=== PATIENT | male | born 1935 | race Caucasian/White ===

== ENCOUNTER → 2016-10-19 | Outpatient (CLI) | payer MEDICARE, BC | END | disposition home or self-care (01) | LOC: GMAB 10:48 | PROVIDERS: ATTEND Family Medicine | DX: Z12.5 Encounter for screening for malignant neoplasm of prostate (principal); I10 Essential (primary) hypertension | CPT/HCPCS: 84443; G0103 ==

== ENCOUNTER 2017-04-22 21:51 | Emergency (ER) | payer MEDICARE, BC ==
[2017-04-22] MEDS ORDERED: POVIDONE IODINE 10 % 15 ML UD TOP ONE (22:19)
[2017-04-22] MEDS ORDERED: LIDOCAINE 1% 10 ML VIAL INJ ONE (22:19)
--- NOTE | 2017-04-22 22:42 | ED.PDOC ---
History of Present Illness - General Time Seen by Provider: 04/22/17 21:56 Source: patient Exam Limitations: no limitations - History of Present Illness Initial Comments: The patient is an 82-year-old male presenting to the emergency room after havingtripped and fallen going up the steps. He hit his left eyebrow on the concrete. He has sustained approximately a 1.75 inch laceration through the eyebrow. No loss of consciousness and no dizziness. No undue headache. No altered mental status. Estimated blood loss prior to arrival approximately 5 cc. He is having no vision changes. No neurological changes. Timing/Duration: momentarily Severity: mild Improving Factors: nothing Worsening Factors: nothing Allergies/Adverse Reactions: Allergies NO KNOWN ALLERGY Allergy (Unverified 04/28/13 21:54) Home Medications: Ambulatory Orders Albuterol Inhaler [Ventolin Hfa Inhaler] 1 puff INH Q4-6H PRN #0 inh 04/29/13 Feridat-Ofwlkxdnvryh-Ugqnxcmf [Bc Fast Pain Relief 650-195-33.3 mg] 2 pow PO DAILY 04/29/13 Metoprolol Tartrate 50 mg PO DAILY 04/29/13 Review of Systems - Review of Systems Constitutional: States: no symptoms reported EENTM: States: see HPI Respiratory: States: no symptoms reported Cardiology: States: no symptoms reported Gastrointestinal/Abdominal: States: no symptoms reported Genitourinary: States: no symptoms reported Musculoskeletal: States: no symptoms reported Skin: States: see HPI Neurological: States: no symptoms reported Endocrine: States: no symptoms reported All other Systems: No Change from Baseline Past Medical History (General) - Patient Medical History Hx Seizures: No Hx Stroke: No Hx Asthma: No Hx of COPD: No Hx Cardiac Disorders: No - HTN, occasionaly edema Hx Congestive Heart Failure: No Hx Pacemaker: No Hx Hypertension: Yes Hx Diabetes: No Hx MRSA: No - Social History Hx Alcohol Use: No Hx Substance Use: No Hx Physical Abuse: No Hx Emotional Abuse: No Physical Exam - Physical Exam General Appearance: Alert, Comfortable, No apparent distress Eye Exam: bilateral normal Ears, Nose, Throat: normal ENT inspection, normal pharynx, other - hronic hearing loss bilaterally Neck: non-tender, full range of motion, supple Respiratory: chest non-tender, lungs clear, normal breath sounds, no respiratory distress, no accessory muscle use Cardiovascular/Chest: normal peripheral pulses, no edema, other - egular rate Peripheral Pulses: radial,right: 2+, radial,left: 2+, dorsalis pedis,right: 2+, dorsalis pedis,left: 2+ Gastrointestinal/Abdominal: soft Rectal Exam: deferred Back Exam: normal inspection, no CVA tenderness, no vertebral tenderness Extremity: normal range of motion, normal inspection, no pedal edema, normal capillary refill 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 Risk and benefits of repair were explained and the patient agrees to proceed. Wound is cleaned with sterile saline and gauze. 3 cc of 1% lidocaine without epinephrine was used for local anesthetic. 4 simple sutures of 4-0 Ethilon were used for reapproximation. Good hemostasis was obtained. No clinical evidence of underlying fracture. No clinical evidence of concussion. No neurological changes. His should wake him several times during the night to make sure he wakes up appropriately. Tylenol can be used for discomfort. The patient deferred an antibiotic dose for prophylaxis. Sutures need to be removed in 7-10 days. ER warnings were given. Topical antibiotic ointment can be applied once daily. Departure - Departure Clinical Impression: Laceration Disposition: Discharge to Home or Self Care Condition: Fair Instructions: DI for Laceration Repair of the Scalp Diet: regular diet Activity: increase activity as tolerated Referrals: Alonso Torres MD [Primary Care Provider] - 1-2 Weeks Home Medications: Ambulatory Orders Albuterol Inhaler [Ventolin Hfa Inhaler] 1 puff INH Q4-6H PRN #0 inh 04/29/13 Cxkxena-Xdmqrzmtwpps-Ezxprsar [Bc Fast Pain Relief 650-195-33.3 mg] 2 pow PO DAILY 04/29/13 Metoprolol Tartrate 50 mg PO DAILY 04/29/13 Additional Instructions: the patient is an 82-year-old male presenting to the emergency room with a 1.75 inch laceration through the left eyebrow after a fall. 4 simple sutures of 4-0 Ethilon were used for reapproximation. Good hemostasis was obtained. No clinical evidence of underlying fracture. No clinical evidence of concussion. No neurological changes. His should wake him several times during the night to make sure he wakes up appropriately. Tylenol can be used for discomfort. The patient deferred an antibiotic dose for prophylaxis. Sutures need to be removed in 7-10 days. ER warnings were given. Topical antibiotic ointment can be applied once daily.
[2017-04-22] MEDS ORDERED: NEOMYCIN-BACITRACIN-POLYMYXIN 0.9 GM UD TOP ONE (22:52)
[2017-04-22 23:07] VITALS: TEMP 96.2
[2017-04-22 23:12] VITALS: BP 123/82; O2SAT 98
== END 2017-04-22 23:12 | disposition home or self-care (01) ==
LOC: ER 21:51
DX: S01.112A Laceration without foreign body of left eyelid and periocular area, initial encounter (principal); I10 Essential (primary) hypertension; Z79.82 Long term (current) use of aspirin; W10.9XXA Fall (on) (from) unspecified stairs and steps, initial encounter; Y92.9 Unspecified place or not applicable

== ENCOUNTER 2017-04-28 11:31 | Emergency (ER) | payer MEDICARE ==
--- NOTE | 2017-04-28 11:48 | CT ---
PROCEDURE: Head HISTORY: altered mental status, paralysis left side Indication: Same as above Comparison: 09/25/2014 Technique: CT of the head was done without intravenous contrast was done in the orthogonal planes. This exam was performed according to our departmental dose-optimization program, which includes automated exposure control, adjustment of the mA and/or KV according to the patient's size and/or use of iterative reconstruction technique. FINDINGS: There is no intracranial hemorrhage, midline shift mass effect or acute focal infarct, given the limitation of motion artifact on the current study. 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 There is periventricular and deep white matter low attenuation, most likely related to small vessel white matter ischemic disease. Intracranial vascular calcifications are seen. If clinical concern exists regarding an acute ischemic/vascular pathology being responsible for patient's symptomatology, an MRI of the brain is more sensitive than the current study, in ruling out such a possibility. There is good lucas/white matter differentiation. The ventricular system is normal. The mastoid air cells are unremarkable . The paranasal sinuses are unremarkable . There is no visualization of acute fractures involving the calvarium or the skull base, once again limited by motion artifact. IMPRESSION: There is no acute intracranial abnormality, given the limitation of motion artifact on the current study. Age related and chronic involutional changes are seen. Electronically signed by: Guanaco Aragon MD 04/28/2017 11:47 AM CDT Workstation: [id number]
[2017-04-28 11:58] VITALS: TEMP 96.5
[2017-04-28] MEDS ORDERED: ASPIRIN TABLET 325 MG TAB PO ONE (12:23)
--- NOTE | 2017-04-28 12:23 | RAD ---
PROCEDURE: XR CHEST 1 VIEW HISTORY: ams COMPARISON: 04/28/2013 TECHNIQUE: Single projection of the chest was done. FINDINGS: The lung toro are well inflated . There are underlying changes of COPD There are no discrete airspace infiltrates, pneumothoraces or pleural effusions. The pulmonary vascularity is normal. The cardiomediastinal silhouette is unremarkable for patient's age and sex. A benign prominent left epicardial fat pad is again noted IMPRESSION: There is no acute pleural-parenchymal process seen in the imaged lung toro. Underlying changes of COPD Electronically signed by: Guanaco Aragon MD 04/28/2017 12:22 PM CDT Workstation: [id number]
--- NOTE | 2017-04-28 12:28 | ED.PDOC ---
History of Present Illness - General Chief Complaint: Neuro Symptoms/Deficits Stated Complaint: altered mental status Time Seen by Provider: 04/28/17 11:43 Source: patient, family Exam Limitations: clinical condition - History of Present Illness Initial Comments: the patient is an 82-year-old male presenting to the emergency room secondary to acute onset neurological deficits. At approximately 11 AM this morning the patient's found him unresponsive lying on his bed. She reports she thought he was . She had seen in less than 15 minutes prior and had said a few words to him and he had spoken back to her. He had apparently been getting dressed when the event happened. She immediately called EMS. by the time EMS arrived the patient was awake but he was confused and unable to speak. The patient was unable to move his left upper and left lower extremity. by the time the patient had arrived here and gone through the CT scanner his deficits were resolving. There was some minimal residual weakness of the left upper extremity. Over the next 30 minutes that resolved. The patient is not having any difficulty speaking. No vision deficits. Strength has returned to upper and lower extremities. He does not appear to be having any difficulty mentating. He reports that he feels fine and wants to go home. His is not okay with that part. The patient has previously been healthy and only takes metoprolol on a daily basis. He does not take any blood thinners. He did have a fall 3 or 4 days ago where he tripped and fell and sustained a laceration over his left eyebrow. He did not lose consciousness at that time. He had been having no difficulties over the next few days. 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 Timing/Duration: 1/2 hour Severity: severe Associated Symptoms: denies symptoms Allergies/Adverse Reactions: Allergies Levofloxacin [From Levaquin] Allergy (Verified 04/22/17 23:07) Morphine Allergy (Verified 04/22/17 23:07) Home Medications: Ambulatory Orders Metoprolol Tartrate 50 mg PO DAILY 04/29/13 Advil 04/22/17 Albuterol Inhaler [Ventolin Hfa Inhaler] 1 puff INH Q4-6H PRN 04/22/17 Review of Systems - Review of Systems Unable to Obtain Due To: condition - once the patient came around, he reports he has been having a mild headache since his fall which is not surprising. He denies any neck pain. Past Medical History (General) - Patient Medical History Hx Seizures: No Hx Stroke: No Hx Asthma: No Hx of COPD: Yes Hx Cardiac Disorders: Yes Hx Congestive Heart Failure: No Hx Pacemaker: No Hx Hypertension: Yes Hx Diabetes: No Hx MRSA: No Surgical History: cholecystectomy - Vaccination History Hx Tetanus, Diphtheria Vaccination: No Hx Influenza Vaccination: No Hx Pneumococcal Vaccination: No - Social History Hx Tobacco Use: Yes Hx Alcohol Use: No Hx Substance Use: No Hx Physical Abuse: No Hx Emotional Abuse: No Family Medical History - Family History Father Family History: Unknown Physical Exam - Physical Exam General Appearance: Other - nitially confused but later oriented. Eye Exam: bilateral normal Ears, Nose, Throat: normal ENT inspection, normal pharynx, other - mild chronic bilateral hearing loss. Neck: non-tender, full range of motion, supple Respiratory: chest non-tender, lungs clear, normal breath sounds, no respiratory distress, no accessory muscle use Cardiovascular/Chest: normal peripheral pulses, regular rate, rhythm, no edema Peripheral Pulses: radial,right: 2+, radial,left: 2+, dorsalis pedis,right: 2+, dorsalis pedis,left: 2+ Gastrointestinal/Abdominal: non tender, soft Rectal Exam: deferred Back Exam: normal inspection - with the exception of the sacrallesion Extremity: normal range of motion - passively, non-tender, no pedal edema, no calf tenderness, normal capillary refill Neurologic: alert - but initially confused. Difficulty speaking initially. These have cleared up. Weakness to the left upper and left lower extremity have cleared up. Skin Exam: normal color - with the exception of the bruising from his previous falls in the surgical procedure to the right eyebrowperformed a few weeks ago Comments: Vital Signs - 24 hr 04/28/17 11:52 Temperature 96.5 F L Pulse Rate [ 94 H Right Brachial] Respiratory 20 Rate Blood Pressure 206/102 [Right Arm] O2 Sat by Pulse 92 L Oximetry Progress - Progress Progress: 04/28/17 12:31 the patient is an 82-year-old male presenting due to a significant TIA. Deficits of confusion, expressive aphasia, left upper and lower extremity weakness appears to have resolved essentially completely at this time. Lytics are not being given. Due to this the patient is receiving aspirin dose. No evidence of significant acute pathology on the head CT. The patient is being transferred for neurological evaluation to [facility] in [place]. We are tolerating some mild hypertension currently. Continue monitoring neurologically. Lab work, EKG, and chest x-ray are otherwise reassuring at this time. - Results/Orders Results/Orders: Laboratory Tests 04/28/17 04/28/17 04/28/17 11:54 11:54 11:54 WBC 4.6 L RBC 4.51 L Hgb 15.2 Hct 44.8 MCV 99.4 H MCH 33.7 H MCHC 33.9 RDW 12.1 Plt Count 190 MPV 6.9 L Absolute Neuts (auto) 2.90 Absolute Lymphs (auto) 1.10 Absolute Monos (auto) 0.40 Absolute Eos (auto) 0.20 Absolute Basos (auto) 0.00 Neutrophils % 62.6 Lymphocytes % 23.7 Monocytes % 9.0 Eosinophils % 3.8 Basophils % 0.9 PT 10.2 INR 0.900 PTT (SP) 22.4 L Sodium 133 L Potassium 4.1 Chloride 94 L Carbon Dioxide 23 Anion Gap 20.1 H BUN 9 Creatinine 0.92 BUN/Creatinine Ratio 9.8 L Random Glucose 141 H Serum Osmolality 267.4 L Calcium 9.4 Total Bilirubin 1.5 H AST 42 ALT 16 Alkaline Phosphatase 53 Creatine Kinase 41 Troponin I < 0.02 Serum Total Protein 7.6 Albumin 4.0 Globulin 3.6 H Albumin/Globulin Ratio 1.[address] shows no evidence of any intracranial hemorrhage. No evidence of acute ischemia. There are chronic changes. chest x-ray appears benign. EKG shows normal sinus rhythm. No acute ST segment changes concerning for ischemia. Heart rate is 89 bpm. Borderline QT interval. critical care time spent on this patient including developing a plan of care and transferis approximately 40 minutes. - EKG/XRAY/CT CT Ordered: Yes CT Interpretation Call Back: Yes Departure - Departure Clinical Impression: Transient ischaemic attack (TIA), and cerebral infarction without residual deficits Disposition: Transfer to Hospital Referrals: Alonso Torres MD [Primary Care Provider] - 1-2 Weeks Home Medications: Ambulatory Orders Metoprolol Tartrate 50 mg PO DAILY 04/29/13 Advil 04/22/17 Albuterol Inhaler [Ventolin Hfa Inhaler] 1 puff INH Q4-6H PRN 04/22/17 Transfer to Outside Facility - Transfer Information Accepting Provider:: dr luz marina Byrd Accepting Facility: [facility] Reason for Transfer: required specialist not available
[2017-04-28 12:50] VITALS: O2SAT 95
[2017-04-28 13:02] VITALS: BP 181/96
== END 2017-04-28 13:02 | disposition short-term general hospital (02) ==
LOC: ER 11:31
DX: G45.9 Transient cerebral ischemic attack, unspecified (principal); J44.9 Chronic obstructive pulmonary disease, unspecified; I10 Essential (primary) hypertension; Z87.891 Personal history of nicotine dependence; Z88.3 Allergy status to other anti-infective agents; Z88.6 Allergy status to analgesic agent

== ENCOUNTER → 2017-05-26 | Outpatient (CLI) | payer MEDICARE | END | disposition home or self-care (01) | LOC: BFHH 12:17 | PROVIDERS: ATTEND Family Medicine | DX: R55 Syncope and collapse (principal); I10 Essential (primary) hypertension; R00.2 Palpitations ==

== ENCOUNTER → 2017-06-18 | Outpatient (CLI) | payer MEDICARE | END | disposition home or self-care (01) | LOC: BFHH 14:12 | PROVIDERS: ATTEND Family Medicine | DX: I10 Essential (primary) hypertension (principal) ==

== ENCOUNTER → 2017-06-25 | Outpatient (CLI) | payer MEDICARE | END | disposition home or self-care (01) | LOC: GMAB 17:54 | PROVIDERS: ATTEND Family Medicine | DX: D51.9 Vitamin B12 deficiency anemia, unspecified (principal); I10 Essential (primary) hypertension; G60.3 Idiopathic progressive neuropathy ==

== ENCOUNTER → 2017-12-10 | Outpatient (CLI) | payer MEDICARE ==
--- NOTE | 2017-12-11 09:44 | US ---
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 TECHNIQUE: Carotid Doppler ultrasound FINDINGS: Right Submitted images show extensive partly calcified plaque of the upper right cervical common carotid artery with extensive plaque at the right carotid bifurcation involving origins of right internal and external carotid arteries. Axial images show significant narrowing of the origins of the right internal and external carotid arteries. Axial images show 18% area narrowing of the upper right CCA with 36% area narrowing of the right carotid bulb and 72% area narrowing of the proximal right ICA. The following flow velocities were obtained: Common carotid artery peak systolic flow velocity measures 66.4 cm/s. Internal carotid artery peak systolic flow velocity measures 97 cm/s. The right ICA to CCA peak systolic flow velocity ratio of 1.5 is within normal limits. External carotid artery peak systolic flow velocity measures 66.4 cm/s. Flow in the right vertebral artery is antegrade. Left Submitted images show extensive calcified plaque in the upper half of the left cervical common carotid artery. Extensive plaque is seen at the left carotid bifurcation involving origins of left internal and external carotid arteries. Axial images show 40% area narrowing of the upper left CCA with 25% area narrowing of the left carotid bulb and approximately 44% area narrowing of the proximal left ICA. The following flow velocities were obtained: Common carotid artery peak systolic flow velocity measures 77 cm/s. Internal carotid artery peak systolic flow velocity measures 74 cm/s. The left internal carotid to common carotid peak systolic flow velocity ratio of 1.0 is normal. External carotid artery peak systolic flow velocity measures 108.1 cm/s. Flow in the left vertebral artery is antegrade. IMPRESSION: Calcified plaque in the upper left CCA and at the left carotid bifurcation. No hemodynamically significant stenosis of the left internal carotid artery or left common carotid artery. Antegrade flow in the left vertebral artery. Extensive arteriosclerotic plaque in the upper right CCA and at the right carotid bifurcation. Axial images show 72% area narrowing of the proximal right ICA. Antegrade flow in the right vertebral artery. No significantly elevated flow velocities on either side. Electronically signed by: Tae Kidd MD 12/11/2017 9:42 AM CDT
== END ==
LOC: US 13:23
PROVIDERS: ATTEND Family Medicine
DX: I65.23 Occlusion and stenosis of bilateral carotid arteries (principal)

== ENCOUNTER → 2017-12-18 | Outpatient (CLI) | payer MEDICARE ==
--- NOTE | 2017-12-19 09:20 | CT ---
EXAM DESCRIPTION: CTA Neck CLINICAL HISTORY: 82 years, Male, OCCLUSION AND STENOSIS OF BILATERAL CAROTID ARTERIES COMPARISON: Carotid Doppler sonogram December 10, 2017 TECHNIQUE: Rapid bolus administration of 100 mL of Isovue 370 IV contrast was performed with thin-section axial scanning of the cervical vessels performed in a dynamic fashion. Reconstructed multiplanar and three dimensional MIP images created on a separate dedicated workstation are reviewed along with the source axial images and stored in the patient's medical record. FINDINGS: Axial source data images show positive enhancement of the aortic arch, brachiocephalic artery, origins of left common carotid and left subclavian arteries. There is positive enhancement of the right common carotid artery and right subclavian artery with positive enhancement of the vertebral arteries which are codominant. There is positive enhancement of the carotid bifurcations bilaterally with positive enhancement of the internal carotid arteries from the bifurcation to the skull base. Positive enhancement of the vessels of the [place]. Right At the right carotid bifurcation, approximately 50% luminal diameter narrowing of the right carotid bulb and proximal right ICA is seen. The degree of narrowing is less than predicted by the Doppler sonographic findings. There is significant tortuosity of the right ICA. The right ECA is significantly narrowed at its origin approximately 70%. Above this focal stenosis the right ECA is widely patent with normal enhancement of peripheral branches. Left At the left carotid bifurcation, no significant narrowing of the left internal carotid artery is seen. Mild 30% narrowing of the left ECA origin is seen with calcified plaque at the left carotid bulb but no significant bulbar narrowing. Calcified plaque is seen at the carotid siphons bilaterally with no significant stenosis. Positive enhancement of bilateral middle cerebral arteries and anterior cerebral arteries as well as anterior communicating artery. There is positive enhancement of the basilar artery, superior cerebellar arteries and bilateral posterior cerebral arteries. Positive enhancement of peripheral branch vessels partly included on the exam. Lower brain appears atrophic consistent with age-related cerebral volume loss. Severe emphysema is seen in the lung apices. Advanced degenerative changes are noted in the cervical spine with moderate spinal canal narrowing. 3-D Shaded surface display 3-D images show calcified plaque of the upper common carotid arteries and carotid bifurcations bilaterally. Three-D shaded surface display images reveal stenotic origin of the external right carotid artery which appears high-grade approximately 70-80%. Milder narrowing of the origin of the right internal carotid artery at and above the bulb approximately 40-50%. On the left, mild origin narrowing of the left external carotid artery is seen. Calcified plaque obscures the left carotid bulb and proximal left ICA but no significant stenosis is evident. MIP images are also rotated mediolaterally. Coronal and sagittal reformatted images confirm the findings. IMPRESSION: 70-80% stenosis of the origin of the right external carotid artery. 50% narrowing of the origin of the right ICA. 30% narrowing of the origin of the left external carotid artery with widely patent left carotid bulb and proximal left internal carotid artery. Normal enhancement of the vessels of the [place]. This exam was performed according to our departmental dose-optimization program, which includes automated exposure control, adjustment of the mA and/or kV according to patient size and/or use of iterative reconstruction technique. Total DLP equals 801.55 mGycm. Electronically signed by: Tae Kidd MD 12/19/2017 9:19 AM CDT
== END | disposition home or self-care (01) ==
LOC: CT 15:00
PROVIDERS: ATTEND Family Medicine
DX: I65.23 Occlusion and stenosis of bilateral carotid arteries (principal)

== ENCOUNTER → 2018-04-04 | Outpatient (CLI) | payer MEDICARE | LOC: GMAJS 14:53 | PROVIDERS: ATTEND Physician Assistant | DX: D51.9 Vitamin B12 deficiency anemia, unspecified (principal); I10 Essential (primary) hypertension ==

== ENCOUNTER → 2018-10-21 | Outpatient (CLI) | payer MEDICARE | LOC: GMAE 14:17 | PROVIDERS: ATTEND Family Medicine | DX: E53.8 Deficiency of other specified B group vitamins (principal); M62.81 Muscle weakness (generalized) ==

== ENCOUNTER → 2018-12-19 | Outpatient (CLI) | payer MEDICARE | LOC: GMAE 15:17 | PROVIDERS: ATTEND Family Medicine | DX: I10 Essential (primary) hypertension (principal) ==

== ENCOUNTER 2019-01-16 16:03 | Observation (INO) | payer MEDICARE ==
[2019-01-16] MEDS ORDERED: IPRATROPIUM/ALBUTEROL 3 ML VIAL NEB ONE ×2 (16:10→17:12)
--- NOTE | 2019-01-16 16:14 | ED.PDOC ---
History of Present Illness - General Chief Complaint: Respiratory Problem Stated Complaint: SOB Time Seen by Provider: 01/16/19 16:13 Source: patient, family Exam Limitations: no limitations - History of Present Illness Initial Comments: Shantanu Jenkins 83 y/o male brought by family with worsening SOB nad got cyanotic at home this am and also chest feels tight no pains;no diaphoresis;Had been having cough productive for the last 4 days was prescribed antibiotics - Augmentin and OTC-cough medications.Had smoked for the last 60 years and presently on e-cig. Timing/Duration: getting worse, other - see hpi Severity: moderate Improving Factors: nothing Worsening Factors: nothing Associated Symptoms: cough Allergies/Adverse Reactions: Allergies Levofloxacin [From Levaquin] Allergy (Verified 04/22/17 23:07) Morphine Allergy (Verified 04/22/17 23:07) Home Medications: Ambulatory Orders Metoprolol Tartrate 50 mg PO BID 04/29/13 Albuterol Inhaler [Ventolin Hfa Inhaler] 1 puff INH Q4-6H PRN 04/22/17 ALPRAZolam [Xanax] 0.25 mg PO TID PRN 01/16/19 Amoxicillin & Pot Clavulanate [Augmentin Tab] 0.5 tablet PO BID 01/16/19 HYDROcodone 10MG/APAP 325MG [Jesse 10/325] 1 ea PO TID PRN 01/16/19 Loratadine [Claritin] 10 mg PO DAILY 01/16/19 Valsartan 320 mg PO DAILY 01/16/19 Review of Systems - Review of Systems Constitutional: States: no symptoms reported EENTM: States: no symptoms reported Respiratory: States: see HPI Cardiology: States: no symptoms reported Gastrointestinal/Abdominal: States: no symptoms reported Genitourinary: States: no symptoms reported Musculoskeletal: States: no symptoms reported Skin: States: no symptoms reported Neurological: States: no symptoms reported Endocrine: States: no symptoms reported All other Systems: Reviewed and Negative, No Change from Baseline Past Medical History (General) - Patient Medical History Hx Seizures: No Hx Stroke: Yes - 2017 Hx Asthma: No Hx of COPD: Yes Hx Cardiac Disorders: Yes Hx Congestive Heart Failure: No Hx Pacemaker: No Hx Hypertension: Yes Hx Diabetes: No Hx MRSA: No Surgical History: cholecystectomy, other - carotid EA right - Vaccination History Hx Tetanus, Diphtheria Vaccination: No Hx Influenza Vaccination: No Hx Pneumococcal Vaccination: No - Social History Hx Tobacco Use: Yes Hx Alcohol Use: No Hx Substance Use: No Hx Physical Abuse: No Hx Emotional Abuse: No - Activities of Daily Living Patient Lives Alone: No Grooming Ability: Independent Eating (Feeding) Ability: Independent Toileting Ability: Independent Family Medical History - Family History Father Family History: Unknown Hx Family Cancer: Yes - dad Physical Exam - Physical Exam General Appearance: Alert, Anxious, No apparent distress Eye Exam: bilateral normal, bilateral other - eye rednesslower lid Ears, Nose, Throat: hearing grossly normal, normal ENT inspection, normal pharynx Neck: full range of motion, supple, normal inspection Respiratory: chest non-tender, no respiratory distress, no accessory muscle use, decreased breath sounds Cardiovascular/Chest: normal peripheral pulses, regular rate, rhythm, no murmur Peripheral Pulses: radial,right: 2+, radial,left: 2+ Gastrointestinal/Abdominal: normal bowel sounds, non tender, soft, no organomegaly Neurologic: alert, oriented x 3 Skin Exam: normal color, warm/dry Progress - Progress Progress: 01/16/19 17:21 Vital Signs - 8 hr 01/16/19 01/16/19 01/16/19 16:03 16:08 16:23 Temperature 97.3 F L Pulse Rate Pulse Rate [ 80 73 70 left brachial] Respiratory 36 H 36 H 26 H Rate Blood Pressure 247/112 217/100 198/97 [left brachial] O2 Sat by Pulse 91 L 95 96 Oximetry 01/16/19 01/16/19 01/16/19 16:31 16:33 16:57 Temperature Pulse Rate 72 Pulse Rate [ 71 left brachial] Respiratory 18 24 Rate Blood Pressure 179/88 [left brachial] O2 Sat by Pulse 93 L 96 93 L Oximetry 01/16/19 17:00 Temperature Pulse Rate Pulse Rate [ 72 left brachial] Respiratory 25 H Rate Blood Pressure 170/74 [left brachial] O2 Sat by Pulse 93 L Oximetry - Results/Orders Results/Orders: 01/16/19 16:06 IV Care:Saline Lock per Protoc QSHIFT Telemetry .ONCE EKG Stat Pulse Ox Stat 01/16/19 17:11 SVN/Updraft Therapy .ONCE SVN/Updraft Therapy .PRN SVN/Updraft Therapy .PRN 01/17/19 09:00 Updrafts Daily Laboratory Results - last 24 hr 01/16/19 01/16/19 01/16/19 16:25 16:25 17:25 WBC 3.5 L RBC 4.21 L Hgb 12.9 L Hct 38.3 L MCV 91.0 MCH 30.7 MCHC 33.7 RDW 13.6 Plt Count 157 MPV 7.5 Absolute Neuts (auto) 2.30 Absolute Lymphs (auto) 0.70 L Absolute Monos (auto) 0.40 Absolute Eos (auto) 0.10 Absolute Basos (auto) 0.00 Neutrophils % 66.2 Lymphocytes % 19.5 L Monocytes % 11.2 H Eosinophils % 2.6 Basophils % 0.5 PT 9.8 INR 0.98 PTT (SP) 28.3 pCO2 38 pO2 62 L HCO3 25.0 ABG pH 7.430 ABG O2 Saturation 94.3 L ABG Base Excess 1.3 ABG Deoxyhemoglobin 5.6 H Oxyhemoglobin % 92.6 L Carboxyhemoglobin % 0.5 Methemoglobin % Sat 1.3 Calc Total Hemoglobin 12.2 L Sodium 136 Potassium 3.4 L Chloride 101 Carbon Dioxide 26 Anion Gap 12.4 BUN 11 Creatinine 0.98 BUN/Creatinine Ratio 11.2 Random Glucose 114 H Serum Osmolality 272.2 L Calcium 9.0 Magnesium 1.6 L Total Bilirubin 1.4 H Direct Bilirubin 0.2 Indirect Bilirubin 1.2 H AST 23 ALT 11 Alkaline Phosphatase 79 Creatine Kinase 49 CK-MB (CK-2) 1.1 CK-MB (CK-2) % 2.24 Troponin I < 0.02 B-Natriuretic Peptide 237.0 H* Serum Total Protein 7.2 Albumin 3.7 Discuss test results with patient and recommended hospital OBS and agreed with plan. - EKG/XRAY/CT EKG: Sinus, nonspecific ST T wave Chg Comments: HR- 72 XRAY: chest - COPD changes Departure - Departure Clinical Impression: COPD exacerbation, Nicotine dependence with current use Time of Disposition: 18:38 Disposition: Admit Patient Condition: Fair Departure Forms: ED Discharge - Pt. Copy, Patient Portal Self Enrollment Referrals: ROGELIO GARCIA MD [Primary Care Provider] - 1-2 Weeks Home Medications: Ambulatory Orders Metoprolol Tartrate 50 mg PO BID 04/29/13 Albuterol Inhaler [Ventolin Hfa Inhaler] 1 puff INH Q4-6H PRN 04/22/17 ALPRAZolam [Xanax] 0.25 mg PO TID PRN 01/16/19 Amoxicillin & Pot Clavulanate [Augmentin Tab] 0.5 tablet PO BID 01/16/19 HYDROcodone 10MG/APAP 325MG [Jesse 10/325] 1 ea PO TID PRN 01/16/19 Loratadine [Claritin] 10 mg PO DAILY 01/16/19 Valsartan 320 mg PO DAILY 01/16/19 Decision To Admit - Decistion To Admit Decision to Admit Reason: Admit from ER Decision to Admit Date: 01/16/19 - D/W Brandon Carney-ANP/Hospitalist Decision to Admit Time: 18:35
--- NOTE | 2019-01-16 16:24 | RAD ---
EXAM DESCRIPTION: Chest,1 View CLINICAL HISTORY: 83 years Male wheezing COMPARISON: 04/28/2017 FINDINGS: Cardiac size based on contour appear unchanged. Lungs are hyperinflated compatible COPD. No acute consolidation, evidence of edema or pneumothorax. Small nodular focus is seen in the lateral aspect of the left lung base measuring 7 mm. This appears unchanged from the patient's previous exam. IMPRESSION: COPD without evidence of acute process Electronically signed by: Jessica Ugarte MD 01/16/2019 4:22 PM CDT
[2019-01-16] MEDS ORDERED: methylPREDNISolone SODIUM SUC 125 MG/2 ML VIAL IV ONE (16:41)
--- NOTE | 2019-01-16 19:24 | HP ---
SUPERVISING PHYSICIAN: Feng Dale M.D. CHIEF COMPLAINT: Shortness of breath. HISTORY OF PRESENT ILLNESS: This is an 83 year-old male patient who came into the E. R. for shortness of breath on Sunday. It started off basically with nasal congestion and fullness. He had some drainage and called his primary care provider, Dr. Penaloza, on Sunday but they were unable to get him in so he went to go see Shayan Holliday, [facility], [facility]. He was evaluated then. At that time he did have a cough and fever, but his lungs sounded okay. He was given antibiotics. He was given Augmentin and instructed to take some Claritin. The Augmentin started to cause diarrhea so they cut the pill in half and continued the medications. His shortness of breath persisted and his cough worsened. The cough turned productive and he has had yellowish green sputum production, therefore he came to the Emergency Room. In the E. R., he was evaluated and had a normal white count with no left shift. His chemistry showed a low potassium at 3.4, magnesium 1.6, bilirubin 1.4, BNP 237. He was referred for admission for chronic obstructive pulmonary disease exacerbation as his chest x-ray did not show any infiltrates. At time of examination, the patient is alert and oriented. PAST MEDICAL HISTORY: 1. Stroke with no residual deficits. 2. Hypertension. 3. Benign prostatic hypertrophy. 4. Anxiety. PAST SURGICAL HISTORY: 1. Cholecystectomy. 2. Carotid endarterectomy. CURRENT MEDICATIONS: 1. Ventolin HFA 1 puff every 4 to 5 hours p.r.n. for shortness of breath. 2. Alprazolam 0.25 mg p.o. t.i.d. p.r.n. for anxiety. 3. Aspirin 81 mg p.o. daily. 4. Hydrocodone 10 mg 1 tablet 3 times a day p.r.n. for pain. 5. Loratadine 10 mg p.o. daily. 6. Metoprolol 50 mg p.o. b.i.d. 7. Valsartan 320 mg p.o. daily. 8. Recently was put on Augmentin 875 p.o. b.i.d. for 10 days. ALLERGIES: AMLODIPINE, LEVOFLOXACIN AND MORPHINE. FAMILY HISTORY: Reviewed and is noncontributory. SOCIAL HISTORY: The patient as a history of smoking but quit smoking cigarettes several years ago and still utilizes an E-cigarette. No alcohol and no illicit drugs. He is and has children. REVIEW OF SYSTEMS: CONSTITUTIONAL: Positive for fever. No chills. No recent weight loss or weight gain. HEENT: No headache. No vision changes. He did have some ear fullness earlier in the week, some nasal congestion and a little bit of a sore throat as well. RESPIRATORY: Positive for cough. No hemoptysis. No pleuritic chest pain. Positive for shortness of breath. CARDIOVASCULAR: No chest pain, palpitations or peripheral edema. GASTROINTESTINAL: No nausea. No vomiting. No constipation. Did have some diarrhea after starting Augmentin. GENITOURINARY: He does have difficulty starting his stream due to BPH, but no frequency or dysuria. MUSCULOSKELETAL: No joint pain, joint swelling or muscle cramps. ENDOCRINE: No polydipsia, polyuria or polyphagia. No heat or cold intolerance. NEUROLOGIC: No paresthesias, seizures or syncope. PHYSICAL EXAMINATION: VITAL SIGNS: Blood pressure 160/83, heart rate 77, respiratory rate 25, temperature 97.3, oxygen saturation 96%. GENERAL: Mr. Jenkins is an 83 year-old male patient in no active distress currently. CHEST: Lungs were diminished but no active wheezing. CARDIOVASCULAR: The patient has a regular rate and rhythm. Normal S1 and S2. ABDOMEN: Soft. Positive bowel sounds. GENITOURINARY: Exam is deferred. EXTREMITIES: Lower extremities with no significant edema. NEUROLOGIC: The patient is alert and oriented. LABORATORY: Labs and films as discussed in the History of Present Illness. ASSESSMENT: 1. Chronic obstructive pulmonary disease exacerbation. 2. Hypertension. 3. Hypokalemia. 4. Hypomagnesemia. PLAN: Will treat the patient for COPD exacerbation with empiric antibiotics as well as IV steroids and scheduled nebulizer therapies. Will restart his home medications as well. Will place him on DVT prophylaxis with Lovenox. I will start him on a PPI for GI ulcer prophylaxis. If the patient improves, he may be able to go home in the next 24 to 48 hours. [facility][id number] [facility]
[2019-01-16] MEDS ORDERED: SODIUM CHLORIDE 0.9% (FLUSH) 10 ML SYG IV PRN (20:40)
[2019-01-16] MEDS ORDERED: IV SET AND CAP CHANGE INJ INJ SCH (21:00)
[2019-01-16] MEDS ORDERED: KCL 20MEQ/0.45% NS 1,000 ML IVS PRN (21:04)
[2019-01-16] MEDS ORDERED: MAGNESIUM SULFATE PREMIX 2GM 2 GM in PREMIX BAG 1 BAG IVPB ONE (21:05)
[2019-01-16] MEDS ORDERED: SODIUM CHLORIDE 0.9% 250ML 250 ML ONE (21:25)
[2019-01-16] MEDS ORDERED: MAGNESIUM SULFATE PREMIX 2GM 50 ML IVPB ONE (21:26)
[2019-01-16] MEDS ORDERED: SODIUM CHL 0.9% 50ML MIN-BAG+ 50 ML IVPB ONE (21:26)
[2019-01-16] MEDS ORDERED: cefTRIAXone SODIUM 1 GM VIAL ONE (21:27)
[2019-01-16] MEDS ORDERED: AZITHROMYCIN IV 500 MG VIAL IVPB ONE (21:27)
[2019-01-16] MEDS: METOPROLOL TARTRATE 50 MG TAB PO SCH (21:31)
[2019-01-16] MEDS: ENOXAPARIN SODIUM 40 MG/0.4 ML SYG SUBCU SCH (21:31)
[2019-01-16] MEDS: cefTRIAXone SODIUM 1 GM in SODIUM CHL 0.9% 50ML MIN-BAG+ 50 ML IVPB SCH (21:32)
[2019-01-16] MEDS: AZITHROMYCIN IV 500 MG in SODIUM CHLORIDE 0.9% 250ML 250 ML IVPB SCH (21:33)
[2019-01-16] MEDS: IPRATROPIUM/ALBUTEROL 3 ML VIAL INH SCH (21:45)
[2019-01-17] MEDS: IPRATROPIUM/ALBUTEROL 3 ML VIAL INH SCH ×7 (00:30→23:30)
[2019-01-17] MEDS: methylPREDNISolone SODIUM SUC 40 MG/ML VIAL IV SCH ×4 (00:34→22:03)
[2019-01-17] MEDS: OMEPRAZOLE CAP 20 MG CAP PO SCH (05:52)
--- NOTE | 2019-01-17 06:45 | RAD ---
EXAM DESCRIPTION: Chest,1 View CLINICAL HISTORY: 83 years Male copd exacerbation COMPARISON: Portable chest dated 01/16/2019; two-view chest dated 10/10/2016 TECHNIQUE: Portable AP view of the chest is obtained. FINDINGS IN THE CHEST: Heart: Allowing for magnification factors related to AP portable technique, the heart is normal in size and configuration. Vasculature: There is mild tortuosity and atherosclerosis of the aorta. There is no evidence of aortic aneurysm or acute findings. The pulmonary vascularity is normal. Mediastinum: Unremarkable otherwise. No evidence of mass or adenopathy. Lungs: There is no focal consolidation in the lungs. The appearance of mild haziness is unchanged along the inferomedial aspect of the right lobe and is probably epicardial fat in correlation with the 2 view chest of 10/10/2016. Pleura: There are no pleural effusions. There are no pneumothoraces. Tubes and catheters: None Chest wall: Unremarkable. Osseous structures: No evidence of acute fracture or other significant osseous abnormalities. IMPRESSION: No acute findings in the chest. Remainder of findings as described above. Electronically signed by: Kathie Waldrop MD 01/17/2019 6:43 AM CDT
[2019-01-17] MEDS ORDERED: VALSARTAN 80 MG TAB ONE (08:15)
[2019-01-17] MEDS ORDERED: POTASSIUM CHLORIDE 20 MEQ TAB PO ONE (09:02)
[2019-01-17] MEDS: ALPRAZolam 0.25 MG TAB PO PRN (09:09)
[2019-01-17] MEDS: HYDROcodone 10MG/APAP 325MG 1 EA TAB PO PRN (09:09)
[2019-01-17] MEDS: VALSARTAN 80 MG TAB PO SCH (09:09)
[2019-01-17] MEDS: ASPIRIN (CHEWABLE) 81 MG TAB PO SCH (09:10)
[2019-01-17] MEDS: LORATADINE 10 MG TAB PO SCH ×2 (09:10→15:14)
[2019-01-17] MEDS: METOPROLOL TARTRATE 50 MG TAB PO SCH ×2 (09:11→20:24)
--- NOTE | 2019-01-17 10:48 | PN ---
SUPERVISING PHYSICIAN: Ricki Narayan MD DATE: 01/17/19 SUBJECTIVE: The patient is lying in bed. He complains of some wheezing and shortness of breath as well as some generalized weakness, but it has improved since his admission yesterday. He is continuing to need oxygen and feels short of breath with exertion. He denies chest pain, nausea or vomiting. I discussed at length his plan of care with his family including his daughter and his . OBJECTIVE: VITAL SIGNS: Temperature 97.9. Heart rate 79. Blood pressure 132/72. Respiratory rate 19. It has gotten as high as 25. His O2 saturation is 95% and has gotten as low as 92% on 2 liters nasal cannula. RESPIRATORY: Somewhat diminished at the bases with a few scattered rhonchi. Otherwise, essentially clear to auscultation. There is a very faint wheeze in the right lower lobe area. CARDIAC: Regular rate and rhythm. GASTROINTESTINAL: Abdomen is soft, nondistended, nontender. Bowel sounds are positive. EXTREMITIES: No cyanosis, clubbing or edema. NEUROLOGIC: Awake, alert and oriented times three. LABORATORY: WBC 2.7, hemoglobin 12.7, hematocrit 38.4. He does have 6 bands. Electrolytes are basically within normal limits with the exception of potassium slightly low at 3.2. Chest x-ray shows no acute findings in the chest. The remainder of the findings as described in the chest x-ray report. All other labs and films have been reviewed via the EMR. ASSESSMENT: 1. Chronic obstructive pulmonary disease with acute exacerbation. 2. Bandemia with leukocytosis, may be secondary to previous upper respiratory infection that he was treated for with Augmentin last week. 3. Hypertension. 4. Hypokalemia. 5. Hypomagnesemia. PLAN: We will continue present supportive care. I will repeat his lab in the morning. I have given him some potassium supplementation. I have also ordered an ambulation study as he may benefit from home oxygen. His family can bring in his Ensure and he can have that as needed. We will also have [facility] on discharge. We will continue to monitor the patient closely and follow as needed. #[id number] [facility]
[2019-01-17] MEDS ORDERED: SODIUM CHL 0.9% 50ML MIN-BAG+ 50 ML IVPB ONE (19:04)
[2019-01-17] MEDS ORDERED: SODIUM CHLORIDE 0.9% 250ML 250 ML ONE (19:04)
[2019-01-17] MEDS ORDERED: cefTRIAXone SODIUM 1 GM VIAL ONE (19:05)
[2019-01-17] MEDS ORDERED: AZITHROMYCIN IV 500 MG VIAL IVPB ONE (19:05)
[2019-01-17] MEDS: cefTRIAXone SODIUM 1 GM in SODIUM CHL 0.9% 50ML MIN-BAG+ 50 ML IVPB SCH (19:29)
[2019-01-17] MEDS: ENOXAPARIN SODIUM 40 MG/0.4 ML SYG SUBCU SCH (20:24)
[2019-01-17] MEDS: AZITHROMYCIN IV 500 MG in SODIUM CHLORIDE 0.9% 250ML 250 ML IVPB SCH (20:24)
[2019-01-18] MEDS: IPRATROPIUM/ALBUTEROL 3 ML VIAL INH SCH ×3 (04:18→12:50)
[2019-01-18] MEDS: OMEPRAZOLE CAP 20 MG CAP PO SCH (06:26)
[2019-01-18] MEDS: VALSARTAN 80 MG TAB PO SCH (08:08)
[2019-01-18] MEDS: HYDROcodone 10MG/APAP 325MG 1 EA TAB PO PRN (08:09)
[2019-01-18] MEDS: ASPIRIN (CHEWABLE) 81 MG TAB PO SCH (08:09)
[2019-01-18] MEDS: LORATADINE 10 MG TAB PO SCH (08:10)
[2019-01-18] MEDS: ALPRAZolam 0.25 MG TAB PO PRN (08:10)
[2019-01-18] MEDS: METOPROLOL TARTRATE 50 MG TAB PO SCH (08:10)
[2019-01-18] MEDS ORDERED: POTASSIUM CHLORIDE 20 MEQ TAB PO ONE (08:44)
[2019-01-18] MEDS ORDERED: predniSONE 20 MG TAB PO SCH (09:00)
[2019-01-18 10:21] VITALS: BP 148/70; TEMP 98.4
--- NOTE | 2019-01-18 12:12 | RAD ---
EXAM: XR Chest, 2 Views CLINICAL HISTORY: 83 years old and is Male; congestion TECHNIQUE: Frontal and lateral views of the chest. COMPARISON: 01/17/2019 FINDINGS: Limitations: None. Lungs: Chronic obstructive changes present with symmetrical hyperinflation. There are stable areas of mild airway and parenchymal scarring. No consolidation. Pleural space: Unremarkable. No pneumothorax. Heart: Unremarkable. No cardiomegaly. Mediastinum: Unremarkable. Bones/joints: Unremarkable. Vasculature: The aorta is tortuous and calcified. No interval change. IMPRESSION: COPD. No definite acute change. Electronically signed by: Rosa Maria Pimentel MD 01/18/2019 12:09 PM CDT
[2019-01-18 15:38] VITALS: O2SAT 98
[2019-01-18] MEDS ORDERED: SODIUM CHLORIDE 0.9% (FLUSH) 10 ML SYG IV SCH (21:00)
--- NOTE | 2019-01-19 21:01 | DS ---
SUPERVISING PHYSICIAN: Ricki Narayan M.D. DISCHARGE DIAGNOSIS: 1. Chronic obstructive pulmonary disease with acute exacerbation that has resolved. 2. Bandemia with leukocytosis, may be secondary to previous upper respiratory infection that was treated with Augmentin last week. It has also improved. 3. Hypertension. 4. Hypokalemia. 5. Hypomagnesemia. HISTORY OF PRESENT ILLNESS: This is an 83 year-old male patient who came into the E. R. for shortness of breath on Sunday. He had started off with some upper respiratory symptoms with nasal congestion. He also had drainage. Dr. Penaloza, his primary care provider, was called on Sunday and they were unable to do his appointment until early afternoon, so he went to see Shayan Holliday, nurse practitioner, [facility]. He was given antibiotics. He was started on Augmentin and instructed to take Claritin. The Augmentin started causing diarrhea so they cut his pill in half and continued the medication. His shortness of breath persisted and his cough worsened so he came to the Emergency Room for a yellowish green productive cough. In the E. R., he had a normal white count with no left shift. His chemistry showed a low potassium at 3.4, magnesium 1.6, bilirubin 1.4, BNP 237. There was no acute exacerbation of congestive heart failure that was noted. He was referred for admission for chronic obstructive pulmonary disease exacerbation. His chest x-ray did not show any infiltrates. HOSPITAL COURSE: He was started on empiric IV antibiotics of Rocephin and azithromycin. He was also on aggressive nebulizer therapies. His home medications were restarted. He had DVT prophylaxis of Lovenox as well as a PPI for ulcer prophylaxis. His clinical picture improved over the next day, although he did have some complaints of shortness of breath and he has had some COPD for several years. He continues to smoke a few cigarettes daily as well as E-cigarettes. An ambulation study was done. His O2 at rest on room air was 86%. He was short of breath on room air, so he was continued on 2 liters. His sats went up to 89% after 3 minutes. Home O2 order was sent in to [facility] and he is qualified for home oxygen. He did have some bandemia yesterday with low WBC, today his white count was 11,800 with a left shift. Vital signs have remained stable. He will be discharged home today in stable condition. LABORATORY: WBCs on admission were 3.5, it went down as low as 2.7 and today it is 11,800. He did have steroids. He did not have a left shift on differential on admission. Today, his neutrophils were 93.8%. Blood gas on admission showed a normal pCO2 but he was hypoxic with a pO2 of 62. O2 saturations were 94% with a pH of 7.43. Electrolytes were within normal limits on admission except for his potassium was 3.5 and magnesium was 1.4. He did receive supplementation. His potassium was 3.5 today and magnesium was 1.9. He received supplementation today. RADIOLOGY: Initial chest x-ray showed COPD without evidence of acute process. His second chest x-ray shows no acute findings in the chest. Family felt that he was more congested today and requested another chest x-ray. His chest x-ray today showed COPD with no definite acute change. DISCHARGE PLAN: The patient will be discharged home in stable condition. We have called [facility] and they will readmit him to their services for home health. He is to resume his previous diet and increase his activity as tolerated. He is to followup with Dr. Penaloza on 01/22/19 at 1:30 PM. He will need a chest x-ray, a CBC, a CMP and a magnesium on arrival. He is to restart his home medications. He is to have 3 days of azithromycin, 7 days of Cefdinir as well as a prednisone taper. I have also instructed him to use Guaifenesin twice daily as well as his nebulizer treatments. His nebulizer treatments of Albuterol are to be done at least 4 times daily and every 2 hours p.r.n. until he sees Dr. Penaloza in followup. He is to return to the hospital or followup with Dr. Penaloza with any problems or complications. DISCHARGE MEDICATIONS: 1. Metoprolol tartrate. 2. Albuterol inhaler. 3. Xanax. 4. Hydrocodone. 5. Valsartan. 6. Loratadine. 7. Aspirin. 8. Azithromycin. 9. Cefdinir. 10. Prednisone taper. 11. Guaifenesin. [facility] has also set him up with an oxygen concentrator as well as portable O2 and he will leave the hospital with home oxygen. #[id number] [facility]
== END 2019-01-18 13:50 | disposition home health service (06) ==
LOC: ER 16:03 → MS 19:24
PROVIDERS: ADMIT Nurse Practitioner; ATTEND Nurse Practitioner Acute Care
DX: J44.1 Chronic obstructive pulmonary disease with (acute) exacerbation (principal); D72.825 Bandemia; I10 Essential (primary) hypertension; E87.6 Hypokalemia; E83.42 Hypomagnesemia; R09.02 Hypoxemia; F17.290 Nicotine dependence, other tobacco product, uncomplicated; N40.0 Benign prostatic hyperplasia without lower urinary tract symptoms; F41.9 Anxiety disorder, unspecified; Z86.73 Personal history of transient ischemic attack (TIA), and cerebral infarction without residual deficits; Z79.82 Long term (current) use of aspirin; Z79.899 Other long term (current) drug therapy; Z88.1 Allergy status to other antibiotic agents; Z88.6 Allergy status to analgesic agent; Z88.8 Allergy status to other drugs, medicaments and biological substances
CPT/HCPCS: 96366 ×2; 96367; 96365; 96368; 96375; 96376; 96372 ×2; J0696 ×2; J1030 ×4; J2930; J7512; J7050 ×4; J1650 ×2; J0456 ×2; J7620 ×13; J3475; J3480; 80048 ×2; 80053; 36415 ×2; 82550; 82553; 85025 ×3; 85730; 85610; 84484; 80076; 83735; 83880; 71045 ×2; 71046; 94640 ×13; 94760 ×12; 82803; 36600; 82805; 99406; 99285; 93005; G0378

== ENCOUNTER → 2019-01-22 | Outpatient (CLI) | payer MEDICARE | LOC: GMAE 16:45 | PROVIDERS: ATTEND Family Medicine | DX: E83.42 Hypomagnesemia (principal); J44.9 Chronic obstructive pulmonary disease, unspecified; E87.6 Hypokalemia ==

== ENCOUNTER → 2019-02-24 | Outpatient (CLI) | payer MEDICARE ==
--- NOTE | 2019-02-24 16:19 | RAD ---
Study: Frontal and Lateral Radiographs of the Chest. Indication: R09.89 OTHER SPECIFIED SYSMTOMS AND SIGNS Comparison: January 18, 2019. Impression: Heart size normal Atherosclerosis aorta. Emphysema, otherwise lungs clear. Degenerative changes of the spine noted. Electronically signed by: Mihai Vann MD 02/24/2019 4:17 PM CDT
== END ==
LOC: LAB.O 15:39
PROVIDERS: ATTEND Nurse Practitioner
DX: I70.0 Atherosclerosis of aorta (principal); J43.9 Emphysema, unspecified

== ENCOUNTER 2019-05-27 21:26 | Emergency (ER) | payer MEDICARE ==
[2019-05-27] MEDS ORDERED: hydrALAZINE HCl 20 MG/ML VIAL IV ONE (21:40)
--- NOTE | 2019-05-27 21:40 | ED.PDOC ---
History of Present Illness - General Time Seen by Provider: 05/27/19 21:38 Source: patient, RN notes reviewed, Vital Signs reviewed, EMS notes reviewed, family, RN/MD - History of Present Illness Initial Comments: Patient is an 84 yo M presenting for evaluation of HTN and headache. He was doing well over the past few days however this evening he was more confused. He was also endorsing a headache throughout the evening, which acutely worsened an hour prior to arrival. He was clutching the top of his head and endorsing an excruciating headache. He has not had any fevers, chills, nausea, or vomiting. He has otherwise been acting like himself. Family gave him an extra dose of Hydralazine without any improvement in his blood pressures, which ran in the 250's this evening. Allergies/Adverse Reactions: Allergies Amlodipine [From Norvasc] Allergy (Verified 01/16/19 18:55) Levofloxacin [From Levaquin] Allergy (Verified 04/22/17 23:07) Morphine Allergy (Verified 04/22/17 23:07) Home Medications: Ambulatory Orders RX: Metoprolol Tartrate 50 mg PO BID 04/29/13 RX: Albuterol Inhaler [Ventolin Hfa Inhaler] 1 puff INH Q4-6H PRN 04/22/17 RX: ALPRAZolam [Xanax] 0.25 mg PO TID PRN 01/16/19 RX: Aspirin [Aspirin Low Strength] 81 mg PO DAILY 01/16/19 RX: HYDROcodone 10MG/APAP 325MG [Dane 10/325] 1 ea PO TID PRN 01/16/19 RX: Loratadine [Claritin] 10 mg PO DAILY 01/16/19 RX: Valsartan 320 mg PO DAILY 01/16/19 Guaifenesin [Mucinex] 600 mg PO BID #60 tab 01/18/19 Polyethylene Glycol 3350 [Miralax] 17 gm PO DAILY 05/27/19 hydrALAZINE HCl [HydrALAzine HCl] 1 tablet PO DAILY 05/27/19 Review of Systems - Review of Systems Constitutional: States: no symptoms reported EENTM: States: no symptoms reported Respiratory: States: no symptoms reported Cardiology: States: no symptoms reported Gastrointestinal/Abdominal: States: no symptoms reported Neurological: States: headache Past Medical History (General) - Patient Medical History Hx Seizures: No 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 Hx Asthma: No Hx of COPD: Yes Hx Cardiac Disorders: Yes Hx Congestive Heart Failure: No Hx Pacemaker: No Hx Hypertension: Yes - prescribed medication for HTN Hx Diabetes: No Hx MRSA: No - Vaccination History Hx Tetanus, Diphtheria Vaccination: No Hx Influenza Vaccination: No Hx Pneumococcal Vaccination: No - Social History Hx Tobacco Use: Yes Hx Alcohol Use: Yes - stopped drinking 4 years ago Hx Substance Use: No Hx Physical Abuse: No Hx Emotional Abuse: No Family Medical History - Family History Father Family History: Unknown Living Status: Hx Family Cancer: Yes - dad, prostate cancer Hx Family;Other: mother passed when pt was 6 months old r/t pneumonia Physical Exam - Physical Exam General Appearance: Anxious, Obvious distress, Well Developed, Well Groomed, Well Hydrated, Well Nourished Eye Exam: bilateral normal Ears, Nose, Throat: hearing grossly normal, normal ENT inspection Neck: non-tender, full range of motion, supple Respiratory: chest non-tender, lungs clear, normal breath sounds, no respiratory distress, no accessory muscle use Cardiovascular/Chest: normal peripheral pulses, regular rate, rhythm, no edema, no gallop, no JVD, no murmur Gastrointestinal/Abdominal: normal bowel sounds, non tender, soft Neurologic: general superintendent II-XII nml as tested, no motor/sensory deficits, alert, oriented x 3 Skin Exam: normal color, warm/dry Progress - Progress Progress: DDx: ICH, Hypertensive Emergency, ACS, CVA, Lacunar infarction 05/28/19 06:27 Patient presented for evaluation of hypertension and headache. On arrival, he was acutely distressed. Hypertensive Urgency work-up was ordered and hydralazine 10mg for his HTN. Cardene gtt was also ordered for refractory HTN. He was found to have no focal neuro deficits on examination. He had no acute intracranial hemorrhage on CT Head. EKG was not significant for ischemic changes. Troponin was found to be WNL. CBC was not significant for acute blood loss or leukocytosis. CMP was not significant for acute derangement. Following Cardene therapy, there was a 20% reduction in Systolic BP therefore it was turned off. He was found to have proteinuria on UA and his symptoms were concerning for Hypertensive Emergency. He was discussed with Dr. Carney, who agreed with plan for admission orginally but we would not be able to utilize cardene gtt. We discussed watching for an hour and trending BP. Familiy was adament for transfer to [facility] for further treatment as they believed the CT here was mising an ICH. I discussed that the radiologist did not see an acute intracranial hemorrhage. Blood pressures continued to fluctuate in the ER, and the patient was having persistent headaches. We discussed that the patient could require advanced imaging such as an MRI and Neuro Eval. Therefore, plan was made for transfer to [facility]. Family and patient comfortable with plan for transfer. - Results/Orders Results/Orders: CT Head Without Intravenous Contrast CLINICAL HISTORY: The patient is 84 years old and is Male; DUFF, HTN. Assess for bleed TECHNIQUE: Axial computed tomography images of the head/brain without intravenous contrast. Sagittal and coronal reformatted images were created and reviewed. This CT exam was performed using one or more of the following dose reduction techniques: automated exposure control, adjustment of the mA and/or kV according to patient size, and/or use of iterative reconstruction technique. COMPARISON: No relevant prior studies available. FINDINGS: BRAIN: There is diffuse cerebral atrophy present, consistent with this patient's age. There is patchy hypoattenuation of the deep white matter which is non-specific, but most likely owing to chronic small vessel ischemic change in a patient of this age group. Evidence of prior bilateral basal ganglia and left thalamic lacunar infarcts are noted. No intracranial hemorrhage, mass effect, or midline shift is seen. VENTRICLES: Unremarkable. No ventriculomegaly. BONES/JOINTS: No acute fracture. SOFT TISSUES: Unremarkable. SINUSES: Unremarkable as visualized. No acute sinusitis. MASTOID AIR CELLS: Unremarkable as visualized. No mastoid effusion. IMPRESSION: Age-related atrophy and chronic white matter ischemic changes, with no evidence of an acute intracranial abnormality. Electronically signed by: Cherelle Miles MD 05/27/2019 10:11 PM CDT 05/27/19 21:45 EKG STAT Laboratory Results - last 24 hr 05/27/19 05/27/19 05/27/19 21:50 21:50 21:50 WBC 6.3 RBC 4.91 Hgb 14.5 Hct 43.6 MCV 88.8 MCH 29.5 MCHC 33.2 RDW 14.4 Plt Count 207 MPV 7.7 Absolute Neuts (auto) 3.80 Absolute Lymphs (auto) 1.70 Absolute Monos (auto) 0.50 Absolute Eos (auto) 0.30 Absolute Basos (auto) 0.10 Neutrophils % 59.5 Lymphocytes % 26.5 Monocytes % 8.6 Eosinophils % 4.5 Basophils % 0.9 Sodium 135 Potassium 3.5 L Chloride 97 L Carbon Dioxide 23 Anion Gap 18.5 H BUN 12 Creatinine 1.02 BUN/Creatinine Ratio 11.8 Random Glucose 112 H Serum Osmolality 270.6 L Calcium 9.2 Total Bilirubin 1.1 H AST 21 ALT 9 L Alkaline Phosphatase 70 Troponin I < 0.02 Serum Total Protein 6.9 Albumin 3.8 Globulin 3.1 Albumin/Globulin Ratio 1.2 Urine Color Urine Appearance Urine pH Ur Specific [place] Urine Protein Urine Glucose (UA) Urine Ketones Urine Blood Urine Nitrite Urine Bilirubin Urine Urobilinogen Ur Leukocyte Esterase Urine RBC Urine WBC Ur Epithelial Cells Urine Bacteria 05/27/19 22:27 WBC RBC Hgb Hct MCV MCH MCHC RDW Plt Count MPV Absolute Neuts (auto) Absolute Lymphs (auto) Absolute Monos (auto) Absolute Eos (auto) Absolute Basos (auto) Neutrophils % Lymphocytes % Monocytes % Eosinophils % Basophils % Sodium Potassium Chloride Carbon Dioxide Anion Gap BUN Creatinine BUN/Creatinine Ratio Random Glucose Serum Osmolality Calcium Total Bilirubin AST ALT Alkaline Phosphatase Troponin I Serum Total Protein Albumin Globulin Albumin/Globulin Ratio Urine Color Yellow Urine Appearance Clear Urine pH 7.0 Ur Specific [place] 1.020 Urine Protein 30 Urine Glucose (UA) Negative Urine Ketones Negative Urine Blood Trace-lysed H Urine Nitrite Negative Urine Bilirubin Negative Urine Urobilinogen 0.2 Ur Leukocyte Esterase Negative Urine RBC 1-3 Urine WBC 0 Ur Epithelial Cells 0 Urine Bacteria 0 Departure - Departure Clinical Impression: Hypertensive emergency, Headache, Proteinuria Time of Disposition: 00:54 Disposition: Transfer to Hospital Condition: Fair Departure Forms: ED Discharge - Pt. Copy, Patient Portal Self Enrollment Instructions: DI for High Blood Pressure Referrals: ROGELIO GARCIA MD [Primary Care Provider] - 1-2 Weeks Home Medications: Ambulatory Orders RX: Metoprolol Tartrate 50 mg PO BID 04/29/13 RX: Albuterol Inhaler [Ventolin Hfa Inhaler] 1 puff INH Q4-6H PRN 04/22/17 RX: ALPRAZolam [Xanax] 0.25 mg PO TID PRN 05/02/19 RX: Aspirin [Aspirin Low Strength] 81 mg PO DAILY 01/16/19 RX: HYDROcodone 10MG/APAP 325MG [Dane 10/325] 1 ea PO TID PRN 01/16/19 RX: Loratadine [Claritin] 10 mg PO DAILY 01/16/19 RX: Valsartan 320 mg PO DAILY 01/16/19 Guaifenesin [Mucinex] 600 mg PO BID #60 tab 01/18/19 Polyethylene Glycol 3350 [Miralax] 17 gm PO DAILY 05/27/19 hydrALAZINE HCl [HydrALAzine HCl] 1 tablet PO DAILY 05/27/19 Comments: Yunior Serrano D.O. [facility] #[id number]
[2019-05-27] MEDS ORDERED: niCARdipine HCL 25 MG in SODIUM CHLORIDE 0.9% 250ML 240 ML IVPB SCH (22:00)
[2019-05-27] MEDS ORDERED: niCARdipine HCL 2.5 MG/ML AMP IVPB ONE (22:02)
[2019-05-27] MEDS ORDERED: SODIUM CHLORIDE 0.9% 250ML 250 ML ONE (22:02)
[2019-05-27] MEDS ORDERED: SODIUM CHLORIDE 0.9% 1000ML 1,000 ML ONE (22:03)
[2019-05-27] MEDS ORDERED: ONDANSETRON INJ 4 MG/2 ML VIAL IV ONE (22:06)
--- NOTE | 2019-05-27 22:13 | CT ---
EXAM: CT Head Without Intravenous Contrast CLINICAL HISTORY: The patient is 84 years old and is Male; DUFF, HTN. Assess for bleed TECHNIQUE: Axial computed tomography images of the head/brain without intravenous contrast. Sagittal and coronal reformatted images were created and reviewed. This CT exam was performed using one or more of the following dose reduction techniques: automated exposure control, adjustment of the mA and/or kV according to patient size, and/or use of iterative reconstruction technique. COMPARISON: No relevant prior studies available. FINDINGS: BRAIN: There is diffuse cerebral atrophy present, consistent with this patient's age. There is patchy hypoattenuation of the deep white matter which is non-specific, but most likely owing to chronic small vessel ischemic change in a patient of this age group. Evidence of prior bilateral basal ganglia and left thalamic lacunar infarcts are noted. No intracranial hemorrhage, mass effect, or midline shift is seen. VENTRICLES: Unremarkable. No ventriculomegaly. BONES/JOINTS: No acute fracture. SOFT TISSUES: Unremarkable. SINUSES: Unremarkable as visualized. No acute sinusitis. MASTOID AIR CELLS: Unremarkable as visualized. No mastoid effusion. IMPRESSION: Age-related atrophy and chronic white matter ischemic changes, with no evidence of an acute intracranial abnormality. Electronically signed by: Cherelle Miles MD 05/27/2019 10:11 PM CDT
[2019-05-27] MEDS ORDERED: fentaNYL CITRATE INJ 50 MCG/ML AMP IV ONE (23:58)
[2019-05-28 01:35] VITALS: BP 152/58; TEMP 99.1; O2SAT 97
== END 2019-05-28 01:35 | disposition short-term general hospital (02) ==
LOC: ER 21:26
DX: I16.1 Hypertensive emergency (principal); R51 Headache; R80.9 Proteinuria, unspecified; G31.9 Degenerative disease of nervous system, unspecified; J44.9 Chronic obstructive pulmonary disease, unspecified; I51.9 Heart disease, unspecified; Z86.73 Personal history of transient ischemic attack (TIA), and cerebral infarction without residual deficits; Z87.891 Personal history of nicotine dependence; Z79.82 Long term (current) use of aspirin; Z79.899 Other long term (current) drug therapy; Z88.8 Allergy status to other drugs, medicaments and biological substances; Z88.1 Allergy status to other antibiotic agents; Z88.5 Allergy status to narcotic agent
CPT/HCPCS: 70450; 80053; 81001; 84484; 85025; 93005; J0360; J2405; J3010; J7030; J7050

== ENCOUNTER → 2019-06-27 | Outpatient (CLI) | payer MEDICARE | LOC: BFHH 09:42 | PROVIDERS: ATTEND Family Medicine | DX: N39.0 Urinary tract infection, site not specified (principal); E78.2 Mixed hyperlipidemia ==

== ENCOUNTER 2019-09-11 09:46 | Inpatient (IN) | payer MEDICARE ==
[2019-09-11] MEDS ORDERED: IPRATROPIUM/ALBUTEROL 3 ML VIAL NEB ONE (10:07)
--- NOTE | 2019-09-11 10:40 | RAD ---
EXAM DESCRIPTION: Chest,2 Views CLINICAL HISTORY: 84 years Male, cough fever, hypoxia COMPARISON: 24 February 2019 TECHNIQUE: PA/lateral FINDINGS: The chest is hyperexpanded. Mild interstitial infiltrate is observed in the left lung base. The heart is within range of normal. No pleural fluid is seen. IMPRESSION: 1. Findings suggestive of chronic obstructive pulmonary disease are observed. 2. An acute interstitial infiltrate is observed in the left lower lobe. Electronically signed by: Dean Castanon MD 09/11/2019 10:38 AM [facility]
[2019-09-11] MEDS ORDERED: cefTRIAXone SODIUM 1 GM in SODIUM CHL 0.9% 50ML MIN-BAG+ 50 ML IVPB ONE (10:44)
[2019-09-11] MEDS ORDERED: SODIUM CHL 0.9% 50ML MIN-BAG+ 50 ML IVPB ONE (11:09)
[2019-09-11] MEDS ORDERED: cefTRIAXone SODIUM 1 GM VIAL ONE (11:09)
[2019-09-11] MEDS ORDERED: AZITHROMYCIN IV 500 MG in SODIUM CHLORIDE 0.9% 250ML 250 ML IVPB ONE (11:46)
--- NOTE | 2019-09-11 12:00 | ED.PDOC ---
History of Present Illness - General Chief Complaint: Fever Stated Complaint: fever Time Seen by Provider: 09/11/19 09:55 Source: patient, family Exam Limitations: no limitations - History of Present Illness Initial Comments: the patient is a 84-year-old male presenting to the emergency room secondary to fevers and chills that started in the middle the night associated with a drop in his pulse oximeter. The patient does have some home oxygen at home but normally does not have to wear it. He has had an increasing cough over the last 48 hours. No chest pain. Cough is moderately productive. He is alert and oriented though most of the talking as done by his . He is pleasant and cooperative. He is requiring a couple of liters of oxygen to maintain his ox ygen saturations. He does have bibasilar rales. He does have a rattling cough. He does have a runny nose. Timing/Duration: unsure Severity: moderate Improving Factors: nothing Worsening Factors: nothing Associated Symptoms: cough, fever/chills, loss of appetite, shortness of breath Allergies/Adverse Reactions: Allergies Amlodipine [From Norvasc] Allergy (Verified 01/16/19 18:55) Levofloxacin [From Levaquin] Allergy (Verified 04/22/17 23:07) Morphine Allergy (Verified 04/22/17 23:07) Home Medications: Ambulatory Orders Metoprolol Tartrate 50 mg PO BID 04/29/13 Albuterol Inhaler [Ventolin Hfa Inhaler] 1 puff INH Q4-6H PRN 04/22/17 ALPRAZolam [Xanax] 0.25 mg PO TID PRN 01/16/19 Aspirin [Aspirin Low Strength] 81 mg PO DAILY 01/16/19 HYDROcodone 10MG/APAP 325MG [Paron 10/325] 1 ea PO TID PRN 01/16/19 Loratadine [Claritin] 10 mg PO DAILY 01/16/19 Valsartan 320 mg PO DAILY 01/16/19 Guaifenesin [Mucinex] 600 mg PO BID #60 tab 01/18/19 Polyethylene Glycol 3350 [Miralax] 17 gm PO DAILY 05/27/19 hydrALAZINE HCl [HydrALAzine HCl] 1 tablet PO DAILY 05/27/19 Review of Systems - Review of Systems Constitutional: States: fever, malaise EENTM: States: nose congestion Respiratory: States: cough, short of breath Cardiology: States: no symptoms reported Gastrointestinal/Abdominal: States: no symptoms reported Genitourinary: States: no symptoms reported Musculoskeletal: States: no symptoms reported Skin: States: no symptoms reported Neurological: States: no symptoms reported Endocrine: States: no symptoms reported All other Systems: No Change from Baseline Past Medical History (General) - Patient Medical History Hx Seizures: No 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 Hx Asthma: No Hx of COPD: Yes Hx Cardiac Disorders: Yes Hx Congestive Heart Failure: No Hx Pacemaker: No Hx Hypertension: Yes - prescribed medication for HTN Hx Diabetes: No Hx MRSA: No - Vaccination History Hx Tetanus, Diphtheria Vaccination: No Hx Influenza Vaccination: No Hx Pneumococcal Vaccination: No - Social History Hx Tobacco Use: Yes Hx Alcohol Use: Yes - stopped drinking 4 years ago Hx Substance Use: No Hx Physical Abuse: No Hx Emotional Abuse: No Family Medical History - Family History Father Family History: Unknown Living Status: Hx Family Cancer: Yes - dad, prostate cancer Hx Family;Other: mother passed when pt was 6 months old r/t pneumonia Physical Exam - Physical Exam General Appearance: Alert, Comfortable, No apparent distress Eye Exam: bilateral normal Ears, Nose, Throat: hearing grossly normal, nasal congestion Neck: full range of motion, supple Respiratory: no respiratory distress, no accessory muscle use, rales, rhonchi Cardiovascular/Chest: normal peripheral pulses, no edema, other - regular rate Peripheral Pulses: radial,right: 2+, radial,left: 2+ Gastrointestinal/Abdominal: non tender, soft Rectal Exam: deferred Back Exam: no CVA tenderness, no vertebral tenderness Extremity: normal range of motion, non-tender, normal inspection, no pedal edema, normal capillary refill Neurologic: medical assistant II-XII nml as tested, alert, normal mood/affect, oriented x 3 Skin Exam: normal color Comments: Vital Signs - 24 hr 09/11/19 09/11/19 09/11/19 10:02 10:29 10:41 Temperature 98.6 F Pulse Rate 63 59 L Pulse Rate [ 68 left brachial] Respiratory 24 14 14 Rate Blood Pressure 118/56 [left brachial] O2 Sat by Pulse 90 L 92 L Oximetry 09/11/19 11:00 Temperature 97.5 F L Pulse Rate Pulse Rate [ 68 left brachial] Respiratory 18 Rate Blood Pressure 111/57 [left brachial] O2 Sat by Pulse 92 L Oximetry Progress - Progress Progress: 09/11/19 12:01 the patient's 84-year-old male presenting to emergency room with what appears to be a developing left sided pneumonia. He has been started on Rocephin and azithromycin. Cultures are being done. He did receive a breathing treatment. He is only his oxygen saturations with supplemental oxygen. I do believe the patient is just on the front end of this pneumonia. There is a very significant likelihood of him worsening given his clinical history and his advanced age. Admit for continued care. He does have a mild hyperbilirubinemia which will need to be followed. - Results/Orders Results/Orders: chest x-ray shows a developing left sided infiltrate. Laboratory Tests 09/11/19 09/11/19 10:18 10:18 WBC 15.9 H RBC 4.49 L Hgb 13.4 L Hct 40.6 L MCV 90.4 MCH 29.8 MCHC 32.9 L RDW 14.0 Plt Count 196 MPV 7.9 Absolute Neuts (auto) Not Reportable Absolute Lymphs (auto) Not Reportable Absolute Monos (auto) Not Reportable Absolute Eos (auto) Not Reportable Neutrophils % Not Reportable Lymphocytes % Not Reportable Monocytes % Not Reportable Eosinophils % Not Reportable Basophils % Not Reportable Sodium 139 Potassium 3.5 L Chloride 104 Carbon Dioxide 24 Anion Gap 14.5 BUN 19 H Creatinine 1.54 H BUN/Creatinine Ratio 12.3 Random Glucose 114 H Serum Osmolality 280.7 Calcium 9.3 Total Bilirubin 2.4 H* AST 30 ALT 12 Alkaline Phosphatase 72 Creatine Kinase 214 H* CK-MB (CK-2) 4.1 CK-MB (CK-2) % 1.92 Troponin I 0.03 B-Natriuretic Peptide 94.4 Serum Total Protein 6.6 Albumin 3.7 Globulin 2.9 Albumin/Globulin Ratio 1.3 Departure - Departure Clinical Impression: Left lower lobe pneumonia Qualifiers: Pneumonia type: due to unspecified organism Qualified Code(s): J18.9 - Pneumonia, unspecified organism Disposition: Admit Patient Departure Forms: ED Discharge - Pt. Copy, Patient Portal Self Enrollment Referrals: ROGELIO GARCIA MD [Primary Care Provider] - 1-2 Weeks Home Medications: Ambulatory Orders Metoprolol Tartrate 50 mg PO BID 04/29/13 Albuterol Inhaler [Ventolin Hfa Inhaler] 1 puff INH Q4-6H PRN 04/22/17 ALPRAZolam [Xanax] 0.25 mg PO TID PRN 01/16/19 Aspirin [Aspirin Low Strength] 81 mg PO DAILY 01/16/19 HYDROcodone 10MG/APAP 325MG [Paron 10/325] 1 ea PO TID PRN 01/16/19 Loratadine [Claritin] 10 mg PO DAILY 01/16/19 Valsartan 320 mg PO DAILY 01/16/19 Guaifenesin [Mucinex] 600 mg PO BID #60 tab 01/18/19 Polyethylene Glycol 3350 [Miralax] 17 gm PO DAILY 05/27/19 hydrALAZINE HCl [HydrALAzine HCl] 1 tablet PO DAILY 05/27/19 Decision To Admit - Decistion To Admit Decision to Admit Reason: Medical Nature Decision to Admit Date: 09/11/19 Decision to Admit Time: 12:02
[2019-09-11] MEDS ORDERED: AZITHROMYCIN IV 500 MG VIAL IVPB ONE (12:31)
[2019-09-11] MEDS ORDERED: SODIUM CHLORIDE 0.9% 250ML 250 ML ONE (12:31)
--- NOTE | 2019-09-11 13:01 | HP ---
SUPERVISING PHYSICIAN: Ricki Narayan M.D. CHIEF COMPLAINT: Fever and shortness of breath. HISTORY OF PRESENT ILLNESS: This is a 84 year-old male patient who came to the Emergency Room secondary to elevated fevers with severe chills that started the previous night. He also has oxygen as needed and chronic obstructive pulmonary disease. His O2 saturations dropped into the mid 80s and he required oxygen overnight. His also took his temperature and it was 102, and he was quite chilled and diaphoretic. His daughter came over later and she reported that his temperature was 100.9. He also had some chest congestion with a runny nose. He has also had several weeks of coughing. Several weeks ago he saw his primary care physician, Dr. Penaloza, and was treated for an upper respiratory infection with doxycycline and he finished those antibiotics. He had taken something for the fever prior to coming to the hospital. His initial vital signs showed a temperature of 98.6 with a heart rate of 68, blood pressure 118/56, respiratory rate 20 and O2 saturation was 90%. It came up 92 on 2 liters nasal cannula. Laboratory studies showed a WBC of 15,900 with hemoglobin 13.4, hematocrit 40.6. He had a left shift on his differential. Electrolytes were basically within normal limits with the exception of his potassium was slightly low at 3.5. Total bilirubin was 2.4 and he normally has a bilirubin of about 1 to 1.2. Creatinine kinase was 214. Troponin was 0.03. The remainder of his liver enzymes were within normal limits. Blood cultures were done. He was also coughing up thick tenacious dark yellow sputum and a sputum culture was also obtained. Influenza per PCR for A and B were both negative. Chest x-ray showed: 1. Chronic obstructive pulmonary disease. 2. Acute interstitial infiltrate in the left lower lobe. He was given some Rocephin and azithromycin in the Emergency Room as well as several breathing treatments and some fluids. I was called for hospital admission. PAST MEDICAL HISTORY: 1. Stroke with no residual deficits. 2. Several transient ischemic attacks within the last 2 or 3 months. 3. Hypertension. 4. Benign prostatic hypertrophy. 5. Anxiety. PAST SURGICAL HISTORY: 1. Cholecystectomy. 2. Carotid endarterectomy. CURRENT MEDICATIONS: Per the EMR and awaiting verification. ALLERGIES: AMLODIPINE, LEVAQUIN AND MORPHINE. FAMILY HISTORY: Noncontributory. SOCIAL HISTORY: He has a history of smoking but quit several years ago. He denies any ETOH or illicit drug use. He is and lives in [place]. REVIEW OF SYSTEMS: GENERAL: Positive for fever and chills. Negative for weight loss or weight gain. HEENT: Positive for runny nose. Negative for ear pain, vision changes or sore throat. RESPIRATORY: Positive for coughing, wheezing and shortness of breath. CARDIAC: Negative for chest pain, palpitations or tachycardia. GASTROINTESTINAL: Positive for nausea. Negative for vomiting, diarrhea or constipation. GENITOURINARY: Negative for hematuria, dysuria or polyuria. MUSCULOSKELETAL: Positive for myalgias. Negative for arthralgias. NEUROLOGIC: Positive for weakness. Negative for seizures or headaches. PHYSICAL EXAMINATION: VITAL SIGNS: Temperature 98.1, heart rate 69, blood pressure 125/62, respiratory rate 20, O2 saturation 94% on 2 liters nasal cannula. GENERAL: This is an 84 year-old male patient who is lying in his hospital bed. He is in no acute distress. HEENT: Normocephalic, atraumatic. Pupils are equal and reactive. Oropharynx is clear. NECK: Supple without mass. RESPIRATORY: Diminished breath sounds bilaterally with a few scattered rhonchi but no wheezing. CHEST: There is equal rise and fall of the chest with inspiration and expiration. CARDIOVASCULAR: Regular rate and rhythm. GASTROINTESTINAL: Abdomen is soft, nondistended, nontender. Bowel sounds are positive. EXTREMITIES: No cyanosis, clubbing or edema. NEUROLOGIC: Awake, alert and oriented times three. LABORATORY: Labs and films are as per the history of present illness. ASSESSMENT: 1. Sepsis related to left lower lobe pneumonia most likely community acquired. His admitting WBCs were 15,900 with a respiratory rate of 24. He also had a reported temperature of 102 at home per his and his daughter later took his temperature and it was 100.9. 2. Acute renal insufficiency. His baseline creatinine is 0.9, admitting creatinine is 1.54. 3. Chronic obstructive pulmonary disease with questionable exacerbation. He has home O2 as needed. His saturations did drop in the mid 80s with significant shortness of breath. He has had multiple breathing treatments. 4. Elevated bilirubin of unknown etiology. He normally has a bilirubin of about 1 to 1.2. Today it is 2.4. 5. Hypertension. 6. Benign prostatic hypertrophy. 7. Anxiety. PLAN: The patient has been admitted to the hospital. The pneumonia protocol has been initiated with nebulizer treatments both p.r.n. and scheduled. I have continued his Rocephin and his azithromycin, and he will continue with aggressive pulmonary hygiene. He has Lovenox for deep venous thrombosis prophylaxis as well as a proton pump inhibitor for ulcer prophylaxis. I will restart his home medications as soon as they are verified. He also will get judicious fluids overnight. I have not started him on any steroids as he is not wheezing at this time. Will continue to monitor closely and follow as needed. #[id number] [facility]
[2019-09-11] MEDS ORDERED: SODIUM CHLORIDE 0.9% (FLUSH) 10 ML SYG IV PRN (13:32)
[2019-09-11] MEDS ORDERED: ALBUTEROL SULFATE 2.5 MG/3 ML VIAL NEB PRN (13:32)
[2019-09-11] MEDS ORDERED: ACETAMINOPHEN 325 MG TAB PO PRN (13:32)
[2019-09-11] MEDS ORDERED: KCL 20MEQ/0.45% NS 1,000 ML IVS ONE (13:37)
[2019-09-11] MEDS: HYDROcodone 10MG/APAP 325MG 1 EA TAB PO PRN (13:48)
[2019-09-11] MEDS ORDERED: IV SET AND CAP CHANGE INJ INJ SCH (14:00)
[2019-09-11] MEDS: IPRATROPIUM/ALBUTEROL 3 ML VIAL INH SCH ×2 (16:04→20:37)
[2019-09-11] MEDS ORDERED: POLYETHYLENE GLYCOL 3350 17 GM PCKT PO PRN (18:29)
[2019-09-11] MEDS: ALPRAZolam 0.25 MG TAB PO PRN (18:44)
[2019-09-11] MEDS ORDERED: METOPROLOL TARTRATE 25 MG TAB ONE (19:27)
[2019-09-11] MEDS ORDERED: PANTOPRAZOLE SODIUM IV 40 MG VIAL ONE (19:28)
[2019-09-11] MEDS: NIFEdipine XL 30 MG TAB PO SCH (20:10)
[2019-09-11] MEDS: guaiFENesin ER TAB 600 MG TAB PO SCH (20:10)
[2019-09-11] MEDS: METOPROLOL TARTRATE 50 MG TAB PO SCH (20:11)
[2019-09-11] MEDS: ENOXAPARIN SODIUM 40 MG/0.4 ML SYG SUBCU SCH (20:12)
[2019-09-11] MEDS: ATORVASTATIN 10 MG TAB PO SCH (20:12)
[2019-09-11] MEDS: SODIUM CHLORIDE 0.9% (FLUSH) 10 ML SYG IV SCH (20:14)
[2019-09-12] MEDS ORDERED: PANTOPRAZOLE SODIUM IV 40 MG VIAL IV SCH (06:30)
--- NOTE | 2019-09-12 06:46 | RAD ---
EXAM: XR Chest, 2 Views CLINICAL HISTORY: Pneumonia TECHNIQUE: Frontal and lateral views of the chest. COMPARISON: 09/11/2019. FINDINGS: Limitations: None. Lungs: There is persistent and slightly improved consolidation in the left lower lobe. The lungs are hyperinflated. Possible 8 mm spiculated nodule in the right upper lobe projecting between the posterior third and fourth ribs. Pleural space: Unremarkable. No pneumothorax. Heart: Unremarkable. No cardiomegaly. Mediastinum: Unremarkable. Bones/joints: No osseous destruction. IMPRESSION: 1. There is persistent and slightly improved consolidation in the left lower lobe. 2. Possible right upper lobe pulmonary nodule. Additional follow-up two view chest recommended in two weeks at which time the left lower lung consolidation and the right upper lobe possible nodule can be reassessed. Electronically signed by: Rosa Maria Pimentel MD 09/12/2019 6:45 AM APPLICATION SUPPORT LEAD
[2019-09-12] MEDS ORDERED: SODIUM CHL 0.9% 50ML MIN-BAG+ 50 ML IVPB ONE (07:05)
[2019-09-12] MEDS ORDERED: METOPROLOL TARTRATE 25 MG TAB ONE (07:05)
[2019-09-12] MEDS ORDERED: SODIUM CHLORIDE 0.9% 250ML 250 ML ONE (07:05)
[2019-09-12] MEDS ORDERED: VALSARTAN 80 MG TAB ONE (07:06)
[2019-09-12] MEDS ORDERED: ASPIRIN TABLET 325 MG TAB ONE (07:06)
[2019-09-12] MEDS ORDERED: cefTRIAXone SODIUM 1 GM VIAL ONE (07:06)
[2019-09-12] MEDS ORDERED: AZITHROMYCIN IV 500 MG VIAL IVPB ONE (07:07)
[2019-09-12] MEDS: IPRATROPIUM/ALBUTEROL 3 ML VIAL INH SCH ×4 (08:11→20:56)
[2019-09-12] MEDS: VALSARTAN 80 MG TAB PO SCH (08:34)
[2019-09-12] MEDS: ASPIRIN TABLET 325 MG TAB PO SCH (08:34)
[2019-09-12] MEDS: METOPROLOL TARTRATE 50 MG TAB PO SCH ×2 (08:35→20:50)
[2019-09-12] MEDS: cefTRIAXone SODIUM 1 GM in SODIUM CHL 0.9% 50ML MIN-BAG+ 50 ML IVPB SCH (08:35)
[2019-09-12] MEDS: LORATADINE 10 MG TAB PO SCH (08:35)
[2019-09-12] MEDS: guaiFENesin ER TAB 600 MG TAB PO SCH ×2 (08:35→20:49)
[2019-09-12] MEDS: SODIUM CHLORIDE 0.9% (FLUSH) 10 ML SYG IV SCH ×2 (08:36→20:50)
[2019-09-12] MEDS: AZITHROMYCIN IV 500 MG in SODIUM CHLORIDE 0.9% 250ML 250 ML IVPB SCH (09:16)
[2019-09-12] MEDS: HYDROcodone 10MG/APAP 325MG 1 EA TAB PO PRN (18:29)
[2019-09-12] MEDS ORDERED: PANTOPRAZOLE SODIUM TAB 40 MG PO ONE (20:00)
[2019-09-12] MEDS: ENOXAPARIN SODIUM 40 MG/0.4 ML SYG SUBCU SCH (20:49)
[2019-09-12] MEDS: NIFEdipine XL 30 MG TAB PO SCH (20:50)
[2019-09-12] MEDS: ATORVASTATIN 10 MG TAB PO SCH (20:50)
[2019-09-12] MEDS: ALPRAZolam 0.25 MG TAB PO PRN (21:53)
[2019-09-13] MEDS: HYDROcodone 10MG/APAP 325MG 1 EA TAB PO PRN (06:07)
[2019-09-13] MEDS ORDERED: PANTOPRAZOLE SODIUM TAB 40 MG PO SCH (06:30)
[2019-09-13] MEDS ORDERED: SODIUM CHLORIDE 0.9% 250ML 250 ML ONE (07:22)
[2019-09-13] MEDS ORDERED: SODIUM CHL 0.9% 50ML MIN-BAG+ 50 ML IVPB ONE (07:22)
[2019-09-13] MEDS ORDERED: cefTRIAXone SODIUM 1 GM VIAL ONE (07:23)
[2019-09-13] MEDS ORDERED: AZITHROMYCIN IV 500 MG VIAL IVPB ONE (07:23)
[2019-09-13] MEDS: ALPRAZolam 0.25 MG TAB PO PRN (08:18)
[2019-09-13] MEDS: VALSARTAN 80 MG TAB PO SCH (08:18)
[2019-09-13] MEDS: ASPIRIN TABLET 325 MG TAB PO SCH (08:18)
[2019-09-13] MEDS: LORATADINE 10 MG TAB PO SCH ×2 (08:18→08:36)
[2019-09-13] MEDS: METOPROLOL TARTRATE 50 MG TAB PO SCH (08:18)
[2019-09-13] MEDS: guaiFENesin ER TAB 600 MG TAB PO SCH (08:19)
[2019-09-13] MEDS: cefTRIAXone SODIUM 1 GM in SODIUM CHL 0.9% 50ML MIN-BAG+ 50 ML IVPB SCH (08:19)
--- NOTE | 2019-09-13 08:20 | PN ---
DATE: 09/12/19 SUPERVISING PHYSICIAN: Ricki Narayan MD SUBJECTIVE: The patient has been afebrile with T-max temperature of 99.5 since admission. Notes that he is feeling a little bit better but continues to feel weak. He has had no chest pains, nausea or vomiting. OBJECTIVE: VITAL SIGNS: T-max 99.5, blood pressure 135/78, heart rate 78, respirations 18, oxygen saturation 89% on room air. Weight 63.2 kg. GENERAL: Patient still looks unwell but is not in any acute distress. CHEST: Lung sounds are coarse towards the bases and diminished but no wheezing noted. HEART: Regular rate and rhythm. ABDOMEN: Soft, nontender. Positive bowel sounds. ABDOMEN: Obese, but soft and nontender. Positive bowel sounds. EXTREMITIES: No edema. NEUROLOGIC: Alert and oriented times three. LABORATORY: White count is down to 11,200 with hemoglobin of 11, hematocrit 33.4, differential does show a continued left shift but resolving bands today. Chemistries showed stable electrolytes with potassium 3.5, creatinine improved to 1.26, bilirubin improving, is at 2.1. Liver functions all showing to be within normal limits except for the elevated bilirubin. Sputum culture pending. Blood cultures are negative to date. RADIOLOGY: Chest x-ray this morning per radiology interpretation shows persistent but slightly improved consolidation in the left lower lobe with a possible right upper lobe pulmonary nodule. Would recommend followup. ASSESSMENT: 1. Chronic obstructive pulmonary disease with questionable exacerbation with a left lower lobe pneumonia. 2. Pulmonary nodule in right upper lobe, need followup as an outpatient. 3. Sepsis secondary to #1. 4. Acute renal insufficiency secondary to #1, resolved with fluids with baseline creatinine being 0.9. 5. Hyperbilirubinemia, unknown etiology, probably due to acute illness. Continue to monitor. 6. Hypertension, stable. 7. Benign prostatic hypertrophy. 8. Anxiety. PLAN: We will continue with treatment of parenteral antibiotics for pneumonia with Rocephin and azithromycin. He remains on aggressive pulmonary hygiene. His medications have been updated and restarted as appropriate to care. He remains on DVT prophylaxis with Lovenox. Will plan to reevaluate in the morning with a chest x-ray and follow his lab. I anticipate at least another 24 to 48 hours given his clinical picture at this point with possible discharge on Sunday. Until the, we will continue to monitor and treat as needed. #[id number] [facility]
[2019-09-13 08:23] VITALS: BP 120/68; TEMP 97.1; O2SAT 92
[2019-09-13] MEDS: IPRATROPIUM/ALBUTEROL 3 ML VIAL INH SCH (08:24)
[2019-09-13] MEDS: SODIUM CHLORIDE 0.9% (FLUSH) 10 ML SYG IV SCH (08:36)
[2019-09-13] MEDS: AZITHROMYCIN IV 500 MG in SODIUM CHLORIDE 0.9% 250ML 250 ML IVPB SCH (09:24)
--- NOTE | 2019-09-21 12:35 | DS ---
SUPERVISING PHYSICIAN: Ricki Narayan M.D. ADMISSION DIAGNOSIS: 1. Sepsis related to left lower lobe pneumonia most likely community acquired. His admitting WBCs were 15,900 with a respiratory rate of 24. He also had a reported temperature of 102 at home per his and his daughter later took his temperature and it was 100.9. 2. Acute renal insufficiency. His baseline creatinine is 0.9, admitting creatinine is 1.54. 3. Chronic obstructive pulmonary disease with questionable exacerbation. He has home O2 as needed. His saturations did drop in the mid 80s with significant shortness of breath. He has had multiple breathing treatments. 4. Elevated bilirubin of unknown etiology. He normally has a bilirubin of about 1 to 1.2. Today it is 2.4. 5. Hypertension. 6. Benign prostatic hypertrophy. 7. Anxiety. DISCHARGE DIAGNOSIS: 1. Chronic obstructive pulmonary disease with questionable exacerbation with a left lower lobe pneumonia. 2. Pulmonary nodule in right upper lobe, need followup as an outpatient. 3. Sepsis secondary to #1 showing good response to treatment. 4. Acute renal insufficiency secondary to #1, resolved with fluids with baseline creatinine being 0.9. 5. Hyperbilirubinemia, unknown etiology, probably due to acute illness. Continue to monitor. 6. Hypertension, stable. 7. Benign prostatic hypertrophy. 8. Anxiety. REASON FOR HOSPITALIZATION: This is a 84 year-old male patient who came to the Emergency Room secondary to elevated fevers with severe chills that started the previous night. He also has oxygen as needed and chronic obstructive pulmonary disease. His O2 saturations dropped into the mid 80s and he required oxygen overnight. His also took his temperature and it was 102, and he was quite chilled and diaphoretic. His daughter came over later and she reported that his temperature was 100.9. He also had some chest congestion with a runny nose. He has also had several weeks of coughing. Several weeks ago he saw his primary care physician, Dr. Penaloza, and was treated for an upper respiratory infection with doxycycline and he finished those antibiotics. He had taken something for the fever prior to coming to the hospital. His initial vital signs showed a temperature of 98.6 with a heart rate of 68, blood pressure 118/56, respiratory rate 20 and O2 saturation was 90%. It came up 92 on 2 liters nasal cannula. Laboratory studies showed a WBC of 15,900 with hemoglobin 13.4, hematocrit 40.6. He had a left shift on his differential. Electrolytes were basically within normal limits with the exception of his potassium was slightly low at 3.5. Total bilirubin was 2.4 and he normally has a bilirubin of about 1 to 1.2. Creatinine kinase was 214. Troponin was 0.03. The remainder of his liver enzymes were within normal limits. Blood cultures were done. He was also coughing up thick tenacious dark yellow sputum and a sputum culture was also obtained. Influenza per PCR for A and B were both negative. The patient was admitted in stable condition. LABORATORY: Initial white count was 15,900 with a left shift and 5% bands. After treatment and prior to discharge, white count had normalized to 7,500 with differential no longer showing a left shift. No bands. His H&H was showing to be stable at 10.7 and 31.9 on discharge, platelet count within normal limits at 158,000. Chemistry showed stable electrolytes, potassium 3.5 on discharge, BUN was 20, creatinine had gone from 1.54 to 1.26 prior to discharge. Bilirubin was elevated initially on admission at 2.4, however this was near normal levels at 1.8. Liver functions were all within normal limits other than the elevated bilirubin. BNP was normal at 94. Urinalysis was within normal limits. Initial flu A and B was negative. MICROBIOLOGY: Blood cultures remained negative after 5 days. Sputum culture showed normal mickie at 48 hours. RADIOLOGY: Chest x-ray initially in the Emergency Room per radiology interpretation showed findings suggestive of chronic obstructive pulmonary disease with an interstitial infiltrate observed in the left lower lobe. Followup chest x-ray on 09/12/19 showed persistent, slightly improved consolidation in the left lower lobe with a possible right upper lobe pulmonary nodule with additional followup recommended after 2 weeks. Please see that report for details. HOSPITAL COURSE: Mr. Jenkins was admitted on 09/11/19 for left lower lobe pneumonia. He was started on antibiotic treatment that included Rocephin and azithromycin as well as aggressive pulmonary hygiene. He did show good response to treatment and vital signs were showing to be stable. On discharge, temperature was 97.1, pulse 71, blood pressure 120/68, showing 97% on nasal cannula. It was felt that he had shown good clinical improvement and was stable enough to discharge to continue with outpatient management. PLAN: Mr. Jenkins was discharged on 09/13/19 to have continued antibiotic coverage for the left lower lobe pneumonia and to have followup with Dr. John in 7 days or sooner. He is to call the office after discharge to establish an appointment. He is to have assistance with home health with [facility]. He is to resume all medications prior to hospitalization as instructed and given instructions to return to the hospital or the Emergency Department as needed. Diet on discharge was regular diet as tolerated. Activity is increase as tolerated. Medications on discharge included to continue antibiotic coverage with azithromycin 500 mg for 2 days and Cefdinir 300 mg twice daily for 7 days. Condition on discharge was stable and improved. DISPOSITION: The patient was discharged home to family. #[id number] [facility]
== END 2019-09-13 10:55 | disposition home health service (06) | DRG 871 ==
LOC: ER 09:46 → MS 13:01 → UNDOADMIN 13:01
PROVIDERS: ADMIT Nurse Practitioner Acute Care; ATTEND Nurse Practitioner Family
DX: A41.9 Sepsis, unspecified organism (principal); J18.9 Pneumonia, unspecified organism; J44.0 Chronic obstructive pulmonary disease with (acute) lower respiratory infection; Z68.1 Body mass index [BMI] 19.9 or less, adult; R91.1 Solitary pulmonary nodule; N28.9 Disorder of kidney and ureter, unspecified; I10 Essential (primary) hypertension; F41.9 Anxiety disorder, unspecified; N40.0 Benign prostatic hyperplasia without lower urinary tract symptoms; E80.6 Other disorders of bilirubin metabolism; E66.9 Obesity, unspecified; Z86.73 Personal history of transient ischemic attack (TIA), and cerebral infarction without residual deficits; Z88.1 Allergy status to other antibiotic agents; Z88.5 Allergy status to narcotic agent; Z88.8 Allergy status to other drugs, medicaments and biological substances; Z87.891 Personal history of nicotine dependence; Z79.82 Long term (current) use of aspirin; Z79.891 Long term (current) use of opiate analgesic; Z79.899 Other long term (current) drug therapy

== ENCOUNTER → 2020-01-20 | Outpatient (CLI) | payer MEDICARE | LOC: GMAE 11:50 | PROVIDERS: ATTEND Family Medicine | DX: I10 Essential (primary) hypertension (principal); E78.5 Hyperlipidemia, unspecified ==

== ENCOUNTER → 2020-10-13 | Outpatient (CLI) | payer MEDICARE | LOC: BFHH 11:16 | PROVIDERS: ATTEND Family Medicine | DX: R06.00 Dyspnea, unspecified (principal) ==

== ENCOUNTER → 2020-10-20 | Outpatient (CLI) | payer MEDICARE | LOC: BFHH 16:59 | PROVIDERS: ATTEND Family Medicine | DX: N39.0 Urinary tract infection, site not specified (principal) ==

== ENCOUNTER 2020-10-26 11:20 | Emergency (ER) | payer MEDICARE ==
--- NOTE | 2020-10-26 11:27 | ED.PDOC ---
History of Present Illness - General Stated Complaint: Abdominal pain Time Seen by Provider: 10/26/20 11:26 Source: patient, family Exam Limitations: no limitations Additional Information: Sent By Dr. Garcia from home to ED Recent chest x-ray reportedly showed some infiltrates. Status post cholecystectomy per family members. Also has had pancreatitis in the distant past. - History of Present Illness Initial Comments: Patient complains of epigastric abdominal pain for the last 3 days. Onset was gradual. Pain is been constant but waxes and wanes. Current pain level is minimal. No nausea or vomiting. No urinary symptoms. No fever or chills. Patient denies blood in the stool. He has a prior history of pancreatitis. Patient also reports some low oxygen at home 88% on room air. He is not complaining a significant increase in his usual dyspnea and baseline cough due to his COPD. After placement on oxygen sats were 94% At home. Patient denies recent known exposure to Covid. He has not had a Covid vaccination. Timing/Duration: other - 3 days Improving Factors: nothing Worsening Factors: nothing Associated Symptoms: malaise Allergies/Adverse Reactions: Allergies Amlodipine [From Norvasc] Allergy (Verified 01/16/19 18:55) Levofloxacin [From Levaquin] Allergy (Verified 04/22/17 23:07) Morphine Allergy (Verified 04/22/17 23:07) Home Medications: Ambulatory Orders Metoprolol Tartrate 25 mg PO BID 04/29/13 ALPRAZolam [Xanax] 0.25 mg PO TID PRN 01/16/19 Aspirin [Aspirin Low Strength] 325 mg PO DAILY 01/16/19 HYDROcodone 10MG/APAP 325MG [[place] 10/325] 1 ea PO TID PRN 01/16/19 Valsartan 320 mg PO DAILY 01/16/19 Polyethylene Glycol 3350 [Miralax] 17 gm PO DAILY PRN 05/27/19 hydrALAZINE HCl [HydrALAzine HCl] 1 tablet PO DAILY PRN 05/27/19 Atorvastatin Calcium [Lipitor] 10 mg PO BEDTIME 09/11/19 Guaifenesin [Mucinex] 600 mg PO BID PRN 09/11/19 Nifedipine [Nifedipine ER] 30 mg PO BEDTIME 09/11/19 Azithromycin 500 mg PO DAILY #2 tab 09/13/19 Cefdinir [Omnicef] 300 mg PO BID #14 cap 09/13/19 Review of Systems - Review of Systems Constitutional: States: malaise. 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 Hx Asthma: No Hx of COPD: Yes Hx Cardiac Disorders: Yes Hx Congestive Heart Failure: No Hx Pacemaker: No Hx Hypertension: Yes - prescribed medication for HTN Hx Diabetes: No Hx MRSA: No - Vaccination History Hx Tetanus, Diphtheria Vaccination: No Hx Influenza Vaccination: No Hx Pneumococcal Vaccination: No - Social History Hx Tobacco Use: Yes Hx Alcohol Use: Yes - stopped drinking 4 years ago Hx Substance Use: No Hx Physical Abuse: No Hx Emotional Abuse: No Family Medical History - Family History Father Family History: Unknown Living Status: Hx Family Cancer: Yes - dad, prostate cancer Hx Family;Other: mother passed when pt was 6 months old r/t pneumonia Physical Exam - Physical Exam General Appearance: Alert, Comfortable, No apparent distress Eye Exam: bilateral normal Ears, Nose, Throat: hearing grossly normal, normal ENT inspection, normal pharynx Neck: non-tender, full range of motion Respiratory: rales - Occasional, upper lobes, wheezing - Minimal, scattered, upper lobes Cardiovascular/Chest: regular rate, rhythm, no edema, no JVD Gastrointestinal/Abdominal: normal bowel sounds, soft, tenderness - Mild, epigastric area, without rebound Rectal Exam: normal exam, other - Stool brown. Gis Analyst Developer present: Nurse Kendra. Back Exam: normal inspection, no CVA tenderness Extremity: no pedal edema, no calf tenderness Neurologic: residential care officer II-XII nml as tested, no motor/sensory deficits, normal mood/affect, oriented x 3 Progress - Progress Progress: 10/26/20 12:31 Elevated bilirubin noted. Unable to order ultrasound because this modality is unavailable in the hospital today. CT ordered without contrast due to elevated serum creatinine. 10/26/20 15:37 At 3:11 PM I discussed this case with Dr. Mitch Wong, pattern wheel maker on-call for [facility] in [place]: He stated given the patient's otherwise stable condition and his active Covid infection that he could follow-up as an outpatient in the near future with appropriate instructions to the family for what to look for should the patient deteriorate in the meantime. At 3:40 PM the Patient was offered monoclonal antibody treatment for the COVID- 19. The patient and his family did not wish to stay in the emergency department any longer and will contact their private doctor to arrange for an outpatient infusion tomorrow. Concerns regarding worsening condition for possible retained common bile duct stone or explained to the patient his family in detail. COVID-19 precautions as well. 10/26/20 19:04 Medical decision makin-year-old male complaining of epigastric pain which has now resolved and the patient is free of abdominal pain and vomiting. He did have a cholecystectomy in the distant past. Patient has a minimal elevation of bilirubin but otherwise labs are unremarkable. In particular the liver enzymes and Lipase are normal. Ultrasound to assess for common bile duct stone could not be performed in the emergency department due to unavailability of a timber management technician. Patient does have positive COVID-19 and has a history of COPD. He was reportedly hypoxemic at home with improvement on oxygen. In the emergency department His oxygen saturations on room air remained generally Above 91 to 94%. Patient was offered IV monoclonal antibody treatment but preferred to defer this until tomorrow because even the emergency room along time and preferred to go home. He is to see a pattern wheel maker in the near future and will return if his condition acutely worsens. 10/26/20 19:06 - Results/Orders Results/Orders: Electrocardiogram: Sinus rhythm, 59/min, otherwise normal tracing without acute findings. Rapid COVID-19 test positive. XAM DESCRIPTION: Chest,1 View CLINICAL HISTORY: 85 years Male, Shortness of breath COMPARISON: 09/12/2019 TECHNIQUE: Single view radiograph of the chest. IMPRESSION: Normal size cardiac silhouette. Partially calcified aorta. Small air-filled hiatal hernia. Unchanged medial bibasilar consolidation which may represent chronic interstitial changes versus pneumonia or aspiration. Previous suspected right upper lobe nodule less conspicuous on today's study. No pleural effusion or pneumothorax. Thoracic spondylosis. Electronically signed by: Jamison Schaffer MD 10/26/2020 12:14 PM ELECTRICAL AND INSTRUMENT MECHANIC ADDENDUM #1 Impression: Pulmonary nodules in the inferior aspect of the medial right middle lobe are incompletely included in the [id number]. Findings are concerning for primary bronchogenic neoplastic process. Recommend further evaluation with CT of the chest for complete evaluation. Consider tissue sampling of the largest 2.1 cm nodule. Electronically signed by: Emmanuel Gallegos MD 10/26/2020 1:32 PM [facility] - [id number] ORIGINAL REPORT EXAM DESCRIPTION: Abdomen w/o Contrast CLINICAL HISTORY: Epigastric pain. Creatinine 1.81. COMPARISON: December 08, 2008 TECHNIQUE: Noncontrast transaxial CT images of the abdomen are obtained. This exam was performed according to our departmental dose- optimization program, which includes automated exposure control, adjustment of the mA and/or kV according to patient size and/or use of iterative reconstruction technique . FINDINGS: The visualized lung bases show spiculated noncalcified pulmonary nodule in the inferior right middle lobe measuring at least 2.1 cm incompletely included in the field of view with smaller 5 mm adjacent noncalcified pulmonary nodule. Mild peripheral interstitial nodular changes are seen in the lower lobes bilaterally. Surgical clips from cholecystectomy are seen. Mild intra and extrahepatic biliary ductal dilatation is again seen. A 5 mm calcification is seen in the head of the pancreas near the distal common bile duct similar to previous exam. No pancreatic duct dilatation. Noncontrast appearance of the spleen, pancreas, and adrenal glands is unremarkable. Severe calcific atherosclerotic disease is seen. Multiple fluid attenuation cortical cysts are seen on both kidneys. The largest on the upper pole right kidney measures 2.9 cm. The largest on the upper pole left kidney measures 4.2 cm. No nephrolithiasis. Moderate vascular calcifications are seen in the kidneys. No obvious ureteral obstruction or hydronephrosis. Moderate perinephric fat stranding is seen. Stomach is partly distended and unremarkable. Visualized loops of small bowel show mild air and fluid-filled distention of proximal to mid small bowel with decompressed mid to distal small bowel. The visualized colon is mostly air and fluid-filled with scattered air- fluid levels. No focal bowel wall thickening. No pathologically enlarged abdominal or retroperitoneal lymphadenopathy. No free intraperitoneal air. Osseous structures show no aggressive bony lesions. Moderate to severe spondylitic changes of the spine are most significant at L4-5. Hyperdense material or calcifications are seen in the loop of bowel in the right lower quadrant incompletely included in the [id number]. IMPRESSION: Cholecystectomy changes are seen. Calcification in the head of the pancreas is seen with mild biliary ductal dilatation. This could represent distal common bile duct calculus. Consider further evaluation with MRCP if the patient has elevation of liver function tests. Severe calcific atherosclerotic disease of the arterial vasculature in the abdomen. Multiple fluid attenuation renal cortical cysts are seen. Air-fluid levels in the small bowel and colon could represent ileus versus nonspecific gastroenteritis. Interval resolution of pancreatitis seen on previous exam. Electronically signed by: Emmanuel Gallegos MD 10/26/2020 1:11 PM ELECTRICAL AND INSTRUMENT MECHANIC END ADDENDUM EXAM DESCRIPTION: Abdomen w/o Contrast CLINICAL HISTORY: Epigastric pain. Creatinine 1.81. COMPARISON: December 08, 2008 TECHNIQUE: Noncontr PCR COVID-19 test positive. 10/26/20 11:45 EKG STAT Laboratory Results - last 24 hr 10/26/20 10/26/20 10/26/20 11:50 11:50 12:22 WBC 6.6 RBC 4.07 L Hgb 12.4 L Hct 36.5 L MCV 89.5 MCH 30.3 MCHC 33.9 RDW 13.8 Plt Count 156 MPV 7.1 L Absolute Neuts (auto) 5.20 Absolute Lymphs (auto) 0.50 L Absolute Monos (auto) 0.80 Absolute Eos (auto) 0.00 Absolute Basos (auto) 0.00 Neutrophils % 79.2 H Lymphocytes % 7.8 L Monocytes % 12.3 H Eosinophils % 0.2 L Basophils % 0.5 Sodium 132 L Potassium 4.1 Chloride 95 L Carbon Dioxide 27 Anion Gap 14.1 BUN 20 H Creatinine 1.81 H BUN/Creatinine Ratio 11.0 Random Glucose 104 Serum Osmolality 267.4 L Calcium 8.8 Total Bilirubin 2.0 H AST 24 ALT 15 Alkaline Phosphatase 71 Serum Total Protein 6.5 Albumin 3.4 Globulin 3.1 Albumin/Globulin Ratio 1.1 Lipase 22 Stool Occult Blood Negative Vital Signs - 24 hr 10/26/20 10/26/20 10/26/20 11:38 12:23 13:34 Temperature 97 F L Pulse Rate [ 70 66 60 Left Brachial] Respiratory 20 16 16 Rate Blood Pressure 131/63 121/67 130/58 [Left Arm] O2 Sat by Pulse 95 94 L 92 L Oximetry 10/26/20 10/26/20 10/26/20 14:00 15:00 16:00 Temperature 97.3 F L 97 F L 97.8 F Pulse Rate [ 64 61 82 Left Brachial] Respiratory 16 16 16 Rate Blood Pressure 152/89 147/86 144/69 [Left Arm] O2 Sat by Pulse 94 L 93 L 96 Oximetry Departure - Departure Clinical Impression: Abdominal pain, COVID-19, Possible retained common bile duct stone Time of Disposition: 15:40 Disposition: Discharge to Home or Self Care Condition: Good Departure Forms: ED Discharge - Pt. Copy, Patient Portal Self Enrollment Instructions: DI for Abdominal Pain-Adult Diet: resume usual diet, other - Take some salty foods to bring up your serum sodium, which is a little low today. Referrals: ROGELIO GARCIA MD [Primary Care Provider] - 1-2 Weeks Home Medications: Ambulatory Orders Metoprolol Tartrate 25 mg PO BID 04/29/13 ALPRAZolam [Xanax] 0.25 mg PO TID PRN 01/16/19 Aspirin [Aspirin Low Strength] 325 mg PO DAILY 01/16/19 HYDROcodone 10MG/APAP 325MG [[place] 10/325] 1 ea PO TID PRN 01/16/19 Valsartan 320 mg PO DAILY 01/16/19 Polyethylene Glycol 3350 [Miralax] 17 gm PO DAILY PRN 05/27/19 hydrALAZINE HCl [HydrALAzine HCl] 1 tablet PO DAILY PRN 05/27/19 Atorvastatin Calcium [Lipitor] 10 mg PO BEDTIME 09/11/19 Guaifenesin [Mucinex] 600 mg PO BID PRN 09/11/19 Nifedipine [Nifedipine ER] 30 mg PO BEDTIME 09/11/19 Azithromycin 500 mg PO DAILY #2 tab 09/13/19 Cefdinir [Omnicef] 300 mg PO BID #14 cap 09/13/19 Additional Instructions: Contacted pattern wheel maker, Dr. Mitch Wong At [phone] Tomorrow to arrange for an appointment as soon as possible. Use your home oxygen as needed if your oxygen is low. If you develop persistently low oxygen and increasing shortness of breath return to the emergency department. If you develop worsening abdominal pain, turn yellow, cannot eat, have Frequent vomiting or generally feel much worse then return to the emergency department or go directly to [facility] in [place] to see the pattern wheel maker cement or concrete finishing supervisor there.
--- NOTE | 2020-10-26 12:15 | RAD ---
EXAM DESCRIPTION: Chest,1 View CLINICAL HISTORY: 85 years Male, Shortness of breath COMPARISON: 09/12/2019 TECHNIQUE: Single view radiograph of the chest. IMPRESSION: Normal size cardiac silhouette. Partially calcified aorta. Small air-filled hiatal hernia. Unchanged medial bibasilar consolidation which may represent chronic interstitial changes versus pneumonia or aspiration. Previous suspected right upper lobe nodule less conspicuous on today's study. No pleural effusion or pneumothorax. Thoracic spondylosis. Electronically signed by: Jamison Schaffer MD 10/26/2020 12:14 PM SURFACING TECHNICIAN
--- NOTE | 2020-10-26 13:12 | CT ---
EXAM DESCRIPTION: Abdomen w/o Contrast CLINICAL HISTORY: Epigastric pain. Creatinine 1.81. COMPARISON: December 08, 2008 TECHNIQUE: Noncontrast transaxial CT images of the abdomen are obtained. This exam was performed according to our departmental dose-optimization program, which includes automated exposure control, adjustment of the mA and/or kV according to patient size and/or use of iterative reconstruction technique . FINDINGS: The visualized lung bases show spiculated noncalcified pulmonary nodule in the inferior right middle lobe measuring at least 2.1 cm incompletely included in the field of view with smaller 5 mm adjacent noncalcified pulmonary nodule. Mild peripheral interstitial nodular changes are seen in the lower lobes bilaterally. Surgical clips from cholecystectomy are seen. Mild intra and extrahepatic biliary ductal dilatation is again seen. A 5 mm calcification is seen in the head of the pancreas near the distal common bile duct similar to previous exam. No pancreatic duct dilatation. Noncontrast appearance of the spleen, pancreas, and adrenal glands is unremarkable. Severe calcific atherosclerotic disease is seen. Multiple fluid attenuation cortical cysts are seen on both kidneys. The largest on the upper pole right kidney measures 2.9 cm. The largest on the upper pole left kidney measures 4.2 cm. No nephrolithiasis. Moderate vascular calcifications are seen in the kidneys. No obvious ureteral obstruction or hydronephrosis. Moderate perinephric fat stranding is seen. Stomach is partly distended and unremarkable. Visualized loops of small bowel show mild air and fluid-filled distention of proximal to mid small bowel with decompressed mid to distal small bowel. The visualized colon is mostly air and fluid-filled with scattered air-fluid levels. No focal bowel wall thickening. No pathologically enlarged abdominal or retroperitoneal lymphadenopathy. No free intraperitoneal air. Osseous structures show no aggressive bony lesions. Moderate to severe spondylitic changes of the spine are most significant at L4-5. Hyperdense material or calcifications are seen in the loop of bowel in the right lower quadrant incompletely included in the [id number]. IMPRESSION: Cholecystectomy changes are seen. Calcification in the head of the pancreas is seen with mild biliary ductal dilatation. This could represent distal common bile duct calculus. Consider further evaluation with MRCP if the patient has elevation of liver function tests. Severe calcific atherosclerotic disease of the arterial vasculature in the abdomen. Multiple fluid attenuation renal cortical cysts are seen. Air-fluid levels in the small bowel and colon could represent ileus versus nonspecific gastroenteritis. Interval resolution of pancreatitis seen on previous exam. Electronically signed by: Emmanuel Gallegos MD 10/26/2020 1:11 PM FIELD CROPS HARVEST MACHINE OPERATOR
[2020-10-26] MEDS ORDERED: HYDROcodone 5MG/APAP 325MG 1 EA TAB PO ONE (15:10)
[2020-10-26] MEDS ORDERED: ALPRAZolam 0.25 MG TAB PO ONE (15:11)
[2020-10-26 16:39] VITALS: BP 144/69; TEMP 97.8; O2SAT 96
== END 2020-10-26 16:00 | disposition home or self-care (01) ==
LOC: ER 11:20
DX: U07.1 COVID-19 (principal); R10.13 Epigastric pain; R93.3 Abnormal findings on diagnostic imaging of other parts of digestive tract; R94.4 Abnormal results of kidney function studies; E80.7 Disorder of bilirubin metabolism, unspecified; I51.9 Heart disease, unspecified; I10 Essential (primary) hypertension; J44.9 Chronic obstructive pulmonary disease, unspecified; Z99.81 Dependence on supplemental oxygen; Z90.49 Acquired absence of other specified parts of digestive tract; Z87.19 Personal history of other diseases of the digestive system; Z79.82 Long term (current) use of aspirin; Z79.899 Other long term (current) drug therapy; Z86.73 Personal history of transient ischemic attack (TIA), and cerebral infarction without residual deficits; Z88.8 Allergy status to other drugs, medicaments and biological substances; Z88.5 Allergy status to narcotic agent; Z88.1 Allergy status to other antibiotic agents

== ENCOUNTER 2020-11-05 14:51 | Inpatient (IN) | payer MEDICARE ==
[2020-11-05] MEDS ORDERED: IPRATROPIUM/ALBUTEROL 3 ML VIAL NEB ONE (15:33)
--- NOTE | 2020-11-05 15:43 | RAD ---
EXAM DESCRIPTION: Chest,1 View CLINICAL HISTORY: covid hypoxia COMPARISON: 03 November 2020 TECHNIQUE: AP portable chest FINDINGS: Diffuse predominantly peripheral interstitial lung disease is observed. The heart is within range of normal. No pleural fluid is seen. There has been mild progression of disease since the previous exam. IMPRESSION: Peripheral interstitial lung disease is observed consistent with Covid pneumonia. There is been a slight interval worsening since previous exam. Electronically signed by: Dean Castanon MD 11/05/2020 3:42 PM BUSINESS DIRECTOR
[2020-11-05] MEDS ORDERED: REMDESIVIR 200 MG in SODIUM CHLORIDE 0.9% 250ML 250 ML IVPB ONE (15:46)
[2020-11-05] MEDS ORDERED: DEXAMETHASONE INJ 4 MG/ML VIAL IV ONE (15:46)
[2020-11-05] MEDS ORDERED: ENOXAPARIN SODIUM 80 MG/0.8 ML SYG SUBCU ONE (16:36)
[2020-11-05] MEDS ORDERED: AZITHROMYCIN IV 500 MG in SODIUM CHLORIDE 0.9% 250ML 250 ML IVPB ONE (16:48)
[2020-11-05] MEDS ORDERED: cefTRIAXone SODIUM 1 GM in SODIUM CHL 0.9% 50ML MIN-BAG+ 50 ML IVPB ONE (16:48)
--- NOTE | 2020-11-05 16:59 | ED.PDOC ---
History of Present Illness - General Chief Complaint: Respiratory Problem Stated Complaint: Low SpO2, SOB, abd pain, COVID+ Time Seen by Provider: 11/05/20 15:09 Source: patient, family Exam Limitations: no limitations - History of Present Illness Initial Comments: The patient is an 85-year-old male presented emergency room secondary to increased shortness of breath over the last 3 days or so. The patient was diagnosed with coronavirus about 12 days ago and did receive the monoclonal antibody infusion. He apparently had a mild reaction to that infusion but then did okay for the following 8 or 9 days. The patient does have longstanding COPD and does normally wear oxygen at baseline. Son was monitoring him last night when he noted his oxygen saturations dipping down into the mid 80s even with his oxygen in place. The patient is arousable but he is drowsy. Apparently he took a dose of his hydrocodone and Ativan prior to coming up here and he had been do sing fairly frequently for the last few days as well. He does have some mild abdominal distention that really feels like constipation on exam. No rebound or peritoneal signs. He is pleasant and cooperative and not in any distress. Initial oxygen saturations are read as 64%, however when hands are warmed up, oxygen saturations are closer to 80%. The patient does correct with a high flow nasal cannula when he is awake but does desaturate when he falls asleep and requires a nonrebreather. Timing/Duration: other - 3 days Severity: moderate Improving Factors: medication Worsening Factors: nothing Associated Symptoms: cough, loss of appetite, malaise, shortness of breath, weakness Allergies/Adverse Reactions: Allergies Amlodipine [From Norvasc] Allergy (Verified 11/05/20 15:27) Levofloxacin [From Levaquin] Allergy (Verified 11/05/20 15:27) Morphine Allergy (Verified 11/05/20 15:27) Home Medications: Ambulatory Orders Metoprolol Tartrate 25 mg PO BID 04/29/13 ALPRAZolam [Xanax] 0.25 mg PO TID PRN 01/16/19 Aspirin [Aspirin Low Strength] 325 mg PO DAILY 01/16/19 HYDROcodone 10MG/APAP 325MG [[place] 10/325] 1 ea PO TID PRN 01/16/19 Valsartan 320 mg PO DAILY 01/16/19 Polyethylene Glycol 3350 [Miralax] 17 gm PO DAILY PRN 05/27/19 hydrALAZINE HCl [HydrALAzine HCl] 1 tablet PO DAILY PRN 05/27/19 Atorvastatin Calcium [Lipitor] 10 mg PO BEDTIME 09/11/19 Guaifenesin [Mucinex] 600 mg PO BID PRN 09/11/19 Nifedipine [Nifedipine ER] 30 mg PO BEDTIME 09/11/19 Azithromycin 500 mg PO DAILY #2 tab 09/13/19 Cefdinir [Omnicef] 300 mg PO BID #14 cap 09/13/19 Ondansetron [Ondansetron Odt] 4 mg PO Q8H #12 tab 11/03/20 Review of Systems - Review of Systems Constitutional: States: malaise, weakness - Generalized EENTM: States: no symptoms reported Respiratory: States: see HPI Cardiology: States: no symptoms reported Gastrointestinal/Abdominal: States: nausea Genitourinary: States: no symptoms reported Musculoskeletal: States: no symptoms reported Skin: States: no symptoms reported Neurological: States: no symptoms reported Endocrine: States: no symptoms reported Hematologic/Lymphatic: States: no symptoms reported All other Systems: No Change from Baseline Past Medical History (General) - Patient Medical History Hx Seizures: No 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, 2018 TIA Hx Asthma: No Hx of COPD: Yes Hx Cardiac Disorders: Yes Hx Congestive Heart Failure: No Hx Pacemaker: No Hx Hypertension: Yes - prescribed medication for HTN Hx Diabetes: No Hx Cancer: No Hx MRSA: No Surgical History: cholecystectomy - Vaccination History Hx Tetanus, Diphtheria Vaccination: No Hx Influenza Vaccination: No Hx Pneumococcal Vaccination: No - Social History Hx Tobacco Use: Yes Hx Alcohol Use: No Hx Substance Use: No Hx Substance Use Treatment: No Hx Depression: No Hx Physical Abuse: No Hx Emotional Abuse: No - Female History Patient is a Female of Child Bearing Age (10 -59 yrs old): No Patient : No Family Medical History - Family History Father Family History: Unknown Living Status: Hx Family Cancer: Yes - dad, prostate cancer Hx Family;Other: mother passed when pt was 6 months old r/t pneumonia Physical Exam - Physical Exam General Appearance: Frail - In no acute distress, Other - Drowsy but oriented. Eye Exam: bilateral normal Ears, Nose, Throat: hearing grossly normal - Chronically decreased bilaterally, normal pharynx Neck: full range of motion, supple Respiratory: no respiratory distress, no accessory muscle use, rales Cardiovascular/Chest: normal peripheral pulses, regular rate, rhythm, no edema Peripheral Pulses: radial,right: 2+, radial,left: 2+ Gastrointestinal/Abdominal: non tender - Diffuse abdominal distention. 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 The patient is being started on remdesivir, azithromycin, Rocephin, dexamethasone and higher flow oxygen. He has also received DuoNeb breathing treatments. He is also being started on Lovenox secondary to the increased D-dimer. I do believe that the benzodiazepines and opiates that he is taking may be contributing to the decreased respiratory drive and the patient and at least holding the medication short-term may prove beneficial. Admit for continued care. Patient has a very high mortality rate with this disease in his current state. fritz gallardo [phone] - Results/Orders Results/Orders: Chest x-ray shows diffuse infiltrates consistent with Covid pneumonia. EKG shows normal sinus rhythm at 75 bpm. Borderline right axis deviation. Normal R wave progression. No ST segment or T wave changes indicative of acute ischemia. Normal QT interval. Laboratory Tests 11/05/20 11/05/20 11/05/20 15:25 15:25 15:25 WBC 4.8 RBC 3.47 L Hgb 10.5 L Hct 31.0 L MCV 89.4 MCH 30.4 MCHC 34.0 RDW 13.5 Plt Count 228 MPV 7.2 L Absolute Neuts (auto) 4.00 Absolute Lymphs (auto) 0.40 L Absolute Monos (auto) 0.30 Absolute Eos (auto) 0.00 Absolute Basos (auto) 0.00 Neutrophils % 84.0 H Lymphocytes % 8.9 L Monocytes % 5.6 Eosinophils % 0.7 L Basophils % 0.8 PT INR PTT (SP) Fibrinogen D-Dimer, Quantitative Sodium 130 L Potassium 3.6 Chloride 95 L Carbon Dioxide 25 Anion Gap 13.6 BUN 38 H Creatinine 2.19 H BUN/Creatinine Ratio 17.4 Random Glucose 110 H Serum Osmolality 270.5 L Lactic Acid 2.6 H* Calcium 7.8 L Magnesium Total Bilirubin 1.1 H D AST 29 ALT 15 Alkaline Phosphatase 51 LD Total Creatine Kinase 40 CK-MB (CK-2) 1.5 CK-MB (CK-2) % Not Reportable Troponin I < 0.02 C-Reactive Protein B-Natriuretic Peptide 172.0 H Serum Total Protein 6.5 Albumin 2.7 L Globulin 3.8 H Albumin/Globulin Ratio 0.7 L Amylase 49 Lipase TSH 11/05/20 11/05/20 15:25 15:25 WBC RBC Hgb Hct MCV MCH MCHC RDW Plt Count MPV Absolute Neuts (auto) Absolute Lymphs (auto) Absolute Monos (auto) Absolute Eos (auto) Absolute Basos (auto) Neutrophils % Lymphocytes % Monocytes % Eosinophils % Basophils % PT 10.3 INR 1.04 PTT (SP) 29.6 Fibrinogen 664 H D-Dimer, Quantitative 3440.0 H* Sodium Potassium Chloride Carbon Dioxide Anion Gap BUN Creatinine BUN/Creatinine Ratio Random Glucose Serum Osmolality Lactic Acid Calcium Magnesium 2.2 Total Bilirubin AST ALT Alkaline Phosphatase LD Total 208 H D Creatine Kinase CK-MB (CK-2) CK-MB (CK-2) % Troponin I C-Reactive Protein 18.2 H* B-Natriuretic Peptide Serum Total Protein Albumin Globulin Albumin/Globulin Ratio Amylase Lipase 20 L TSH 1.40 Departure - Departure Clinical Impression: Pneumonia due to COVID-19 virus, Advanced age Acute renal failure Qualifiers: Acute renal failure type: unspecified Qualified Code(s): N17.9 - Acute kidney failure, unspecified Disposition: Admit Patient Departure Forms: ED Discharge - Pt. Copy, Patient Portal Self Enrollment Diet: regular diet Referrals: ROGELIO GARCIA MD [Primary Care Provider] - 1-2 Weeks Home Medications: Ambulatory Orders Metoprolol Tartrate 25 mg PO BID 04/29/13 ALPRAZolam [Xanax] 0.25 mg PO TID PRN 01/16/19 Aspirin [Aspirin Low Strength] 325 mg PO DAILY 01/16/19 HYDROcodone 10MG/APAP 325MG [[place] ] 1 ea PO TID PRN 01/16/19 Valsartan 320 mg PO DAILY 01/16/19 Polyethylene Glycol 3350 [Miralax] 17 gm PO DAILY PRN 05/27/19 hydrALAZINE HCl [HydrALAzine HCl] 1 tablet PO DAILY PRN 05/27/19 Atorvastatin Calcium [Lipitor] 10 mg PO BEDTIME 09/11/19 Guaifenesin [Mucinex] 600 mg PO BID PRN 09/11/19 Nifedipine [Nifedipine ER] 30 mg PO BEDTIME 09/11/19 Azithromycin 500 mg PO DAILY #2 tab 09/13/19 Cefdinir [Omnicef] 300 mg PO BID #14 cap 09/13/19 Ondansetron [Ondansetron Odt] 4 mg PO Q8H #12 tab 11/03/20 Decision To Admit - Decistion To Admit Decision to Admit Reason: Medical Nature Decision to Admit Date: 11/05/20 Decision to Admit Time: 17:07
--- NOTE | 2020-11-05 17:47 | RAD ---
EXAM: XR Abdomen, 2 Views CLINICAL HISTORY: abd distention TECHNIQUE: Frontal view of the abdomen/pelvis with upright view of the abdomen. COMPARISON: 10/26/2020 and chest x-ray 11/05/2020 FINDINGS: Limitations: None. Lower thorax: Stable groundglass infiltrates in the visualized lung bases. Intraperitoneal space: No free air. Gastrointestinal tract: There is prominent aeration of redundant colonic loops. No distention. Organs: There is mild distention of the urinary bladder. Cholecystectomy clips present. Bones/joints: Degenerative changes noted in the spine. Soft tissues: No abnormality noted. No concerning calcifications. No concerning radiopaque foreign body noted within the patient. Vasculature: Atherosclerotic calcification noted. IMPRESSION: 1. Nonspecific, nonobstructive intestinal gas pattern. If additional imaging is clinically warranted, CT may be of benefit. 2. There is mild distention of the urinary bladder. 3. Stable groundglass lung disease. Electronically signed by: Rosa Maria Pimentel MD 11/05/2020 5:45 PM DIRECTOR ASSET
--- NOTE | 2020-11-05 18:09 | HP ---
SUPERVISING PHYSICIAN: PHUONG GONZALEZ MD CHIEF COMPLAINT: Increasing shortness of breath. HISTORY OF PRESENT ILLNESS: This is an 85 year-old male who presented to the Emergency Room today due to some increasing shortness of breath that had been occurring over the last 3 days. He was recently diagnosed with Covid 12 days previously, he did receive a monoclonal antibody infusion but at some point he apparently had a moderate reaction to the infusion. He does have a history of chronic obstructive pulmonary disease and is on oxygen at home. It is reported by his son that he was monitoring last night and noted that his oxygen saturations were going down in the 80s even with oxygen in place. The patient was arousing but drowsy and apparently he has been taking hydrocodone and Ativan which he has p.r.n. He actually took both before he came to the Emergency Room and was noted to be fairly drowsy on presentation. His initial oxygen saturations in the Emergency Room were 64% but he was noted that his hands were cold and once they were warmed, oxygen saturations were reading 80% on room air. The patient was placed in high flow nasal cannula which did improve to around 96% but it was noted desats pretty quickly when falls asleep and required a nonrebreather. His chest x-ray showed peripheral interstitial lung disease observed consistent with Covid pneumonia which was slightly worsened since previous exam on November 03. His labs showed his D-dimer was elevated at 3440 as well as his creatinine was up to 2.19 and lactic acid was slightly elevated at 2.6. C-reactive protein was elevated at 18.2 and white count a slight left shift with a white count of 4,800. Given his recent diagnosis of Covid and chronic obstructive pulmonary disease history with 02 dependence showing desaturations even with nasal cannula at home and findings consistent with Covid pneumonitis pneumonia on initial workup, he is going to be admitted for continued treatment of Covid pneumonitis with symptoms of developing worsening pneumonia. He was admitted in stable condition. PAST MEDICAL HISTORY: 1. 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 2. Stroke with no residual deficits. 2. History of multiple TIAs. 3. Hypertension. 4. Benign prostatic hypertrophy. 5. Anxiety which he takes Xanax for. PAST SURGICAL HISTORY: 1. Cholecystectomy. 2. Carotid endarterectomy. CURRENT MEDICATIONS: Awaiting updated list in the electronic medical records. ALLERGIES: AMLODIPINE, LEVAQUIN AND MORPHINE. FAMILY HISTORY: Noncontributory. SOCIAL HISTORY: The patient has a history of smoking but quit several years previous. He denies any alcohol r illicit drug use. He is and lives in [place]. REVIEW OF SYSTEMS: GENERAL: Positive for fever and chills, general malaise. No reported unexplained weight loss. HEENT: Positive for nasal congestion. Negative for earache, vision changes or sore throat. RESPIRATORY: As noted in history of present illness, increasing shortness of breath with some coughing. CARDIAC: Negative for chest pain, palpitations, syncopal episodes or tachycardia. GASTROINTESTINAL: Negative for nausea, vomiting, diarrhea or constipation, abdominal pain. GENITOURINARY: Negative for hematuria, dysuria or polyuria. MUSCULOSKELETAL: Positive for general malaise,negative for arthralgias. NEUROLOGIC: Positive for generalized weakness. No reported seizures or headaches, ataxia or other neuro or motor focal deficits. HEMATOLOGIC: No unexplained bleeding, bruising or transfusion reactions. PHYSICAL EXAMINATION: VITAL SIGNS: Temperature initially on admission to the medical/surgical floor was 99.9, pulse 86, blood pressure 108/58, respirations 20, oxygen saturation 98 to 96% on nonrebreather, maintaining 94% on nasal cannula when he is awake. GENERAL: The patient is a little drowsy but he awakes easily at which time he was oriented and alert. He does not appear to be in any acute distress. HEENT: Tympanic membranes clear bilaterally. Oropharynx pink, no lesions. NECK: Supple, non-tender, full range of motion, no jugular venous distention. CHEST: Lung sounds were bilateral decreased towards the bases with faint inspiratory and expiratory wheezing, no rhonchi or rales. CARDIOVASCULAR: Regular rate and rhythm without appreciable murmurs, rubs, or gallops. GASTROINTESTINAL: Abdomen is soft with some mild tenderness which appears to be diffuse, no point tenderness or rebound tenderness. RECTAL: Exam deferred. BACK: Without CVA or vertebral tenderness. EXTREMITIES: No cyanosis, clubbing or edema. NEUROLOGIC: Cranial nerves II through XII are grossly intact. He is oriented x3, a little drowsy, otherwise oriented. SKIN: [place] and dry. LABORATORY: White count 4,800, hemoglobin 10.5, hematocrit 31.0, platelet count 228,000, differential does show a slight left shift, no bands. Coagulation studies showed D-dimer at 3440, fibrinogen 664, PT/PTT normal. Chemistries show sodium of 130, potassium 3.6, BUN 38, creatinine 2.19, looks like his baseline creatinine is around 1.26. Glucose 110, calcium 7.8, he had a slightly elevated lactic acid at 2.6, bilirubin 1.1. Other liver functions within normal limits. Troponin less than 0.02. BNP was slightly elevated at 172. LDH 208, C- reactive protein 18.2, amylase normal, lipase normal, TSH normal. Urinalysis is pending. MICROBIOLOGY: Influenza A and B by PCR was negative. His previous Covid testing in the clinic was positive. Those results are pending copies. Blood cultures were completed prior to initiation of antibiotics. RADIOLOGY: Abdominal x-ray shows some nonspecific nonobstructive bowel gas pattern, some mild distention of the urinary bladder and there are some notable ground glass lung disease. Chest x-ray per radiology interpretation showed peripheral interstitial lung disease consistent with Covid pneumonia with some slightly worsening since previous exam on November 03, 2020. ASSESSMENT: 1. Covid pneumonitis with developing pneumonia. 2. Acute renal failure possibly due to some prerenal azotemia. 3. Moderate electrolyte imbalance in the form of hyponatremia probably due to underlying developing pneumonia. 4. Chronic obstructive pulmonary disease exacerbation secondary to #1. Patient is 02 dependent. 5. History of strokes with no residual deficits and several TIAs in the past. 6. Hypertension. 7. Benign prostatic hypertrophy. 8. Generalized anxiety disorder, on Xanax. PLAN: Mr. Jenkins is going to be admitted for further treatment of his chronic obstructive pulmonary disease exacerbation secondary to Covid. Given that he has Covid on top of chronic obstructive pulmonary disease and looks like pneumonia, we will go ahead and start him on empiric coverage with Rocephin and azithromycin. He will be on Decadron but given that he does have some chronic obstructive pulmonary disease and he is having some wheezing and 02 dependency, we will go ahead and increase his Decadron to 6 mg b.i.d. for at least 4 days and then we can probably take him back to daily. I have also started him on breathing treatments, even though he has Covid I do not think he can follow commands well enough or do well enough with an inhaler and advanced COPD, will start him on Duoneb treatments along with Pulmicort b.i.d. He does have a significantly elevated D-dimer, unfortunately we are not able to do a CT of his chest, will go ahead and continue with 1 mg/kg Lovenox which was started in the Emergency Room at every 12 hours. He will be on Align, Protonix, Mucinex. He will be on bronchial hygiene with incentive spirometry. He is on Remdesivir as per protocol. Again, we will titrate his oxygen via nasal cannula as possible to keep his 02 between 94 and 96%. He does have some apneic episodes when he is sleeping and does breathe through his mouth, therefore, relies on nasal cannula resting, he may need to be on a more aggressive management, either Airvo system or nonrebreather. We will follow his lab as per protocol. I would anticipate his length of stay to probably be at least 2-3 days, possibly more given his advanced age and COPD. Prognosis is fairly poor but he will be treated aggressively. Until we can transition him to outpatient management, we will continue to monitor and treat as needed #[id number] [facility]
[2020-11-05] MEDS ORDERED: ACETAMINOPHEN 325 MG TAB PO PRN (18:14)
[2020-11-05] MEDS ORDERED: ONDANSETRON INJ 4 MG/2 ML VIAL IV PRN (18:14)
[2020-11-05] MEDS ORDERED: SODIUM CHLORIDE 0.9% (FLUSH) 10 ML SYG IV PRN (18:14)
[2020-11-05] MEDS ORDERED: ALBUTEROL INHALER 64 PUFF/8GM INH PRN (18:20)
[2020-11-05] MEDS ORDERED: SODIUM CHLORIDE 0.9% 500ML 500 ML IVS ONE (18:27)
[2020-11-05] MEDS ORDERED: AZITHROMYCIN IV 500 MG VIAL IVPB ONE (19:58)
[2020-11-05] MEDS ORDERED: SODIUM CHL 0.9% 50ML MIN-BAG+ 50 ML IVPB ONE (19:58)
[2020-11-05] MEDS ORDERED: cefTRIAXone SODIUM 1 GM VIAL ONE (19:58)
[2020-11-05] MEDS ORDERED: SODIUM CHLORIDE 0.9% 250ML 250 ML ONE (19:58)
[2020-11-05] MEDS ORDERED: ALBUTEROL INHALER 64 PUFF/8GM INH SCH (20:00)
[2020-11-05] MEDS: IV SET AND CAP CHANGE INJ INJ SCH (20:35)
[2020-11-05] MEDS: guaiFENesin ER TAB 600 MG TAB PO SCH (20:58)
[2020-11-05] MEDS: BUDESONIDE NEBS 0.5 MG/2 ML INH NEB SCH (21:22)
[2020-11-05] MEDS: IPRATROPIUM/ALBUTEROL 3 ML VIAL NEB SCH (21:22)
[2020-11-06] MEDS: PANTOPRAZOLE SODIUM IV 40 MG VIAL IV SCH (06:03)
--- NOTE | 2020-11-06 07:28 | RAD ---
: 1935. Technique: Portable AP upright chest x-ray. Two images. Comparison: Chest x-ray on November 05, 2020. Clinical history: COVID PNA. Heart size: Heart size is normal. Calcified aorta. Lungs: Bilateral multilobar airspace infiltrates. There is little change but perhaps slight improvement at the medial right base. Underlying air trapping from COPD. Pleura: No pleural effusion. No pneumothorax. Mediastinum and greyson: Unremarkable. Skeletal: Unremarkable. Support tubings: None. Impression: 1. Bilateral pneumonia. Some improvement at the right base. Electronically signed by: Ender Gordon MD 11/06/2020 7:26 AM PIGMENT PUSHER
[2020-11-06] MEDS ORDERED: METOPROLOL TARTRATE 25 MG TAB ONE ×2 (07:43→20:26)
[2020-11-06] MEDS ORDERED: AZITHROMYCIN IV 500 MG VIAL IVPB ONE (07:43)
[2020-11-06] MEDS ORDERED: SODIUM CHLORIDE 0.9% 250ML 250 ML ONE ×2 (07:44→13:52)
[2020-11-06] MEDS ORDERED: SODIUM CHL 0.9% 50ML MIN-BAG+ 50 ML IVPB ONE (07:44)
[2020-11-06] MEDS ORDERED: cefTRIAXone SODIUM 1 GM VIAL ONE (07:44)
[2020-11-06] MEDS: AZITHROMYCIN IV 500 MG in SODIUM CHLORIDE 0.9% 250ML 250 ML IVPB SCH (08:19)
[2020-11-06] MEDS: ASPIRIN (CHEWABLE) 81 MG TAB PO SCH (08:20)
[2020-11-06] MEDS: DEXAMETHASONE INJ 10 MG/ML VIAL IV SCH ×2 (08:20→20:37)
[2020-11-06] MEDS: BIFIDOBACTERIUM INFANTIS 4 MG CAP PO SCH (08:20)
[2020-11-06] MEDS: ENOXAPARIN SODIUM 80 MG/0.8 ML SYG SUBCU SCH ×2 (08:21→20:35)
[2020-11-06] MEDS: cefTRIAXone SODIUM 1 GM in SODIUM CHL 0.9% 50ML MIN-BAG+ 50 ML IVPB SCH (08:22)
[2020-11-06] MEDS ORDERED: DEXAMETHASONE INJ 10 MG/ML VIAL IV SCH (09:00)
[2020-11-06] MEDS: BUDESONIDE NEBS 0.5 MG/2 ML INH NEB SCH ×2 (09:00→21:05)
[2020-11-06] MEDS: IPRATROPIUM/ALBUTEROL 3 ML VIAL NEB SCH ×4 (09:00→21:05)
[2020-11-06] MEDS ORDERED: IPRATROPIUM/ALBUTEROL 3 ML VIAL NEB ONE ×2 (12:26→17:23)
[2020-11-06] MEDS: REMDESIVIR 100 MG in SODIUM CHLORIDE 0.9% 250ML 250 ML IVPB SCH (13:30)
[2020-11-06] MEDS: METOPROLOL TARTRATE 50 MG TAB PO SCH ×2 (13:45→20:36)
[2020-11-06] MEDS: guaiFENesin ER TAB 600 MG TAB PO SCH ×2 (13:45→20:36)
[2020-11-06] MEDS ORDERED: REMDESIVIR IV 100 MG VIAL ONE (13:52)
[2020-11-06] MEDS: VALSARTAN 320 MG PO SCH (15:55)
--- NOTE | 2020-11-06 16:42 | PN ---
SUPERVISING PHYSICIAN: Feng Dale MD DATE: 11/06/20 SUBJECTIVE: The patient is lying in bed asleep. He reported earlier that he had been in some distress and had required a higher amount of oxygen. At this time, he is resting comfortably. OBJECTIVE: VITAL SIGNS: Temperature 97.7, heart rate 78, blood pressure 115/59, respiratory rate 22, oxygen saturation 88 to 91% on venturi mask. RESPIRATORY: Diminished throughout. CARDIAC: Regular rate and rhythm. NEUROLOGIC: He is asleep. LABORATORY: WBC 4,000, hemoglobin 10, hematocrit 29.4, he has a left shift on his differential. D-dimer is 3,060 with a fibrinogen of 675. PC02 is 34, P02 is 56, bicarb 23, pH 7.45, oxygen saturation 90%. Sodium 130, potassium 4.3, chloride 98, carbon dioxide 21, BUN 36, creatinine 1.73. Lactic acid 3.4, calcium 8, CRP greater than 17.2. LD of 201. Preliminary blood cultures show no growth after 24 hours. RADIOLOGY: Bilateral pneumonia with some improvement in the right base. ASSESSMENT: 1. Covid pneumonitis with developing pneumonia. 2. Acute renal failure possibly due to some prerenal azotemia. 3. Moderate electrolyte imbalance in the form of hyponatremia probably due to underlying developing pneumonia. 4. Chronic obstructive pulmonary disease exacerbation secondary to #1. Patient is 02 dependent. 5. History of strokes with no residual deficits and several TIAs in the past. 6. Hypertension. 7. Benign prostatic hypertrophy. 8. Generalized anxiety disorder, on Xanax. PLAN: We will continue present supportive care and titrate his oxygen as needed. We will need to monitor his respiratory status closely. I will also continue with the routine Covid guidelines including azithromycin, Rocephin, Remdesivir, Decadron as well as aggressive pulmonary hygiene. I have ordered lab and chest x-ray for tomorrow. We will continue to follow and treat as needed #[id number] MTDD
[2020-11-06] MEDS ORDERED: guaiFENesin ER TAB 600 MG TAB ONE (20:26)
[2020-11-06] MEDS: ATORVASTATIN 10 MG TAB PO SCH (20:36)
[2020-11-06] MEDS: NIFEdipine XL 30 MG TAB PO SCH (20:37)
[2020-11-07] MEDS ORDERED: PANTOPRAZOLE SODIUM IV 40 MG VIAL ONE (04:47)
[2020-11-07] MEDS: PANTOPRAZOLE SODIUM IV 40 MG VIAL IV SCH (06:13)
[2020-11-07] MEDS ORDERED: AZITHROMYCIN IV 500 MG VIAL IVPB ONE (06:57)
[2020-11-07] MEDS ORDERED: BIFIDOBACTERIUM INFANTIS 4 MG CAP ONE (06:57)
[2020-11-07] MEDS ORDERED: DEXAMETHASONE INJ 10 MG/ML VIAL ONE ×2 (06:57→18:55)
[2020-11-07] MEDS ORDERED: guaiFENesin ER TAB 600 MG TAB ONE ×2 (06:57→18:55)
[2020-11-07] MEDS ORDERED: METOPROLOL TARTRATE 25 MG TAB ONE ×2 (06:57→18:56)
[2020-11-07] MEDS ORDERED: ENOXAPARIN SODIUM 80 MG/0.8 ML SYG SUBCU ONE ×2 (06:57→18:55)
[2020-11-07] MEDS ORDERED: ASPIRIN (CHEWABLE) 81 MG TAB ONE (06:57)
[2020-11-07] MEDS ORDERED: REMDESIVIR IV 100 MG VIAL ONE (06:58)
[2020-11-07] MEDS ORDERED: cefTRIAXone SODIUM 1 GM VIAL ONE (06:58)
[2020-11-07] MEDS ORDERED: SODIUM CHLORIDE 0.9% 250ML 250 ML ONE (06:58)
[2020-11-07] MEDS: AZITHROMYCIN IV 500 MG in SODIUM CHLORIDE 0.9% 250ML 250 ML IVPB SCH (07:53)
[2020-11-07] MEDS: guaiFENesin ER TAB 600 MG TAB PO SCH ×2 (07:54→20:21)
[2020-11-07] MEDS: ASPIRIN (CHEWABLE) 81 MG TAB PO SCH (07:55)
[2020-11-07] MEDS: BIFIDOBACTERIUM INFANTIS 4 MG CAP PO SCH (07:55)
[2020-11-07] MEDS: METOPROLOL TARTRATE 50 MG TAB PO SCH ×2 (07:55→20:22)
[2020-11-07] MEDS: ENOXAPARIN SODIUM 80 MG/0.8 ML SYG SUBCU SCH ×2 (07:55→20:23)
[2020-11-07] MEDS: VALSARTAN 320 MG PO SCH (07:56)
[2020-11-07] MEDS: DEXAMETHASONE INJ 10 MG/ML VIAL IV SCH ×2 (07:56→20:23)
[2020-11-07] MEDS ORDERED: IPRATROPIUM/ALBUTEROL 3 ML VIAL NEB ONE ×3 (08:34→17:07)
[2020-11-07] MEDS ORDERED: BUDESONIDE NEBS 0.5 MG/2 ML INH NEB ONE (08:35)
[2020-11-07] MEDS: BUDESONIDE NEBS 0.5 MG/2 ML INH NEB SCH ×2 (09:00→21:15)
[2020-11-07] MEDS: IPRATROPIUM/ALBUTEROL 3 ML VIAL NEB SCH ×4 (09:00→21:16)
--- NOTE | 2020-11-07 09:22 | RAD ---
TECHNIQUE: Chest,1 View Chest radiograph, AP 1 view. HISTORY: MAIN COVID PNA COMPARISON: Chest x-ray November 06, 2020. FINDINGS: Lungs/Pleura: Bilateral scattered airspace opacities are relatively unchanged compared to the prior. No appreciable pneumothorax. No blunting of costophrenic angles are evident to suggest effusions. Stable elevated right hemidiaphragm. Mediastinum, [place]: Aortic calcifications. Heart: Cardiac silhouette is within normal limits. Bones: No suspicious osseous lesions. Soft Tissues: Unremarkable. Other: None. IMPRESSION: * Stable bilateral pneumonia. Electronically signed by: Silverio Pimentel 11/07/2020 9:21 AM RETAIL SUPPORT SPECIALIST
[2020-11-07] MEDS: REMDESIVIR 100 MG in SODIUM CHLORIDE 0.9% 250ML 250 ML IVPB SCH (10:02)
[2020-11-07] MEDS: cefTRIAXone SODIUM 1 GM in SODIUM CHL 0.9% 50ML MIN-BAG+ 50 ML IVPB SCH (12:09)
--- NOTE | 2020-11-07 13:39 | PN ---
SUPERVISING PHYSICIAN: Feng Dale MD DATE: 11/07/20 SUBJECTIVE: The patient is lying in bed sleeping. He awakens easily. He is on BiPAP. He is somewhat confused but he does answer simple yes/no questions appropriate. Reported by nursing and respiratory therapy that his respiratory status has stabilized, although he does wear biPAP and alternates between Airvo. OBJECTIVE: VITAL SIGNS: Temperature 99.1, heart rate 86, blood pressure 124/55, respiratory rate 20, oxygen saturation 93% on 10 liters high flow. RESPIRATORY: Essentially clear to auscultation bilaterally, he is slightly diminished. CARDIAC: Regular rate and rhythm. NEUROLOGIC: He is awake and alert. LABORATORY: WBC 14,400, hemoglobin 10.3, hematocrit 30.4. D-dimer has improved to 2,020 with a fibrinogen of 643. Electrolytes are basically within normal limits. Lactic acid 1.3. LV 188, C-reactive protein 10.8. Preliminary blood cultures show no growth after 24 hours. RADIOLOGY: Chest x-ray shows stable bilateral pneumonia. All other labs and films have been reviewed via the EMR. ASSESSMENT: 1. Covid-19 pneumonitis with stable pneumonia. 2. Acute renal failure possibly due to some prerenal azotemia. 3. Moderate electrolyte imbalance that has improved. 4. Chronic obstructive pulmonary disease with exacerbation. Patient is 02 dependent at home. 5. History of previous CVAs with no residual deficits. 6. Hypertension. 7. Benign prostatic hypertrophy. 8. Generalized anxiety disorder, on Xanax. PLAN: We will continue present supportive care including the Covid guidelines. We will continue to titrate his oxygen as tolerated. I have ordered lab and chest x-ray for tomorrow. We will continue with aggressive pulmonary hygiene. [facility][id number] [facility]
[2020-11-07] MEDS ORDERED: NIFEdipine XL 30 MG TAB PO ONE (18:56)
[2020-11-07] MEDS ORDERED: ATORVASTATIN 10 MG TAB ONE (18:56)
[2020-11-07] MEDS: ATORVASTATIN 10 MG TAB PO SCH (20:21)
[2020-11-07] MEDS: DOCUSATE SODIUM 100 MG CAP PO SCH (20:23)
[2020-11-07] MEDS: NIFEdipine XL 30 MG TAB PO SCH (20:23)
[2020-11-08] MEDS ORDERED: PANTOPRAZOLE SODIUM IV 40 MG VIAL ONE (04:45)
[2020-11-08] MEDS: PANTOPRAZOLE SODIUM IV 40 MG VIAL IV SCH (05:57)
[2020-11-08] MEDS ORDERED: BIFIDOBACTERIUM INFANTIS 4 MG CAP ONE (07:30)
[2020-11-08] MEDS ORDERED: AZITHROMYCIN IV 500 MG VIAL IVPB ONE (07:30)
[2020-11-08] MEDS ORDERED: ENOXAPARIN SODIUM 80 MG/0.8 ML SYG SUBCU ONE (07:30)
[2020-11-08] MEDS ORDERED: DEXAMETHASONE INJ 10 MG/ML VIAL ONE (07:30)
[2020-11-08] MEDS ORDERED: guaiFENesin ER TAB 600 MG TAB ONE (07:30)
[2020-11-08] MEDS ORDERED: ASPIRIN (CHEWABLE) 81 MG TAB ONE (07:30)
[2020-11-08] MEDS ORDERED: REMDESIVIR IV 100 MG VIAL ONE (07:31)
[2020-11-08] MEDS ORDERED: cefTRIAXone SODIUM 1 GM VIAL ONE (07:31)
[2020-11-08] MEDS ORDERED: SODIUM CHL 0.9% 50ML MIN-BAG+ 50 ML IVPB ONE (07:31)
[2020-11-08] MEDS ORDERED: METOPROLOL TARTRATE 25 MG TAB ONE (07:31)
[2020-11-08] MEDS ORDERED: SODIUM CHLORIDE 0.9% 250ML 250 ML ONE (07:31)
--- NOTE | 2020-11-08 07:42 | RAD ---
EXAM DESCRIPTION: X-ray single view chest. CLINICAL HISTORY: 85 years Male, COVID PNA COMPARISON: 11/07/2020 at 9:00 AM and 11/06/2020 TECHNIQUE: Single portable x-ray view of the chest performed on 11/08/2020 at 7:06 AM FINDINGS: The lungs are well-expanded. There are stable interstitial and alveolar opacities bilaterally, worse on the right without significant interval change. Findings may reflect multifocal pneumonia or edema. The lateral costophrenic sulci are grossly clear. There is no evidence of a pneumothorax. The cardiac silhouette is normal in size and configuration. The mediastinal contours are normal. No acute osseous abnormality is identified. No acute soft tissue abnormalities are seen. Lines and tubes: None. Free air: None IMPRESSION: No significant interval change when compared to the prior studies likely reflecting multifocal pneumonia. Electronically signed by: Mariama Menjivar DO 11/08/2020 7:40 AM INTEGRATION ARCHITECT
[2020-11-08] MEDS ORDERED: BUDESONIDE NEBS 0.5 MG/2 ML INH NEB ONE (07:49)
[2020-11-08] MEDS ORDERED: IPRATROPIUM/ALBUTEROL 3 ML VIAL NEB ONE (07:49)
[2020-11-08] MEDS: IPRATROPIUM/ALBUTEROL 3 ML VIAL NEB SCH ×4 (08:00→20:10)
[2020-11-08] MEDS: BUDESONIDE NEBS 0.5 MG/2 ML INH NEB SCH ×2 (08:00→20:10)
[2020-11-08] MEDS: AZITHROMYCIN IV 500 MG in SODIUM CHLORIDE 0.9% 250ML 250 ML IVPB SCH (08:44)
[2020-11-08] MEDS: DEXAMETHASONE INJ 10 MG/ML VIAL IV SCH (08:44)
[2020-11-08] MEDS: ASPIRIN (CHEWABLE) 81 MG TAB PO SCH (08:45)
[2020-11-08] MEDS: ENOXAPARIN SODIUM 80 MG/0.8 ML SYG SUBCU SCH ×2 (08:45→20:27)
[2020-11-08] MEDS: BIFIDOBACTERIUM INFANTIS 4 MG CAP PO SCH (08:45)
[2020-11-08] MEDS: REMDESIVIR 100 MG in SODIUM CHLORIDE 0.9% 250ML 250 ML IVPB SCH (08:45)
[2020-11-08] MEDS: METOPROLOL TARTRATE 50 MG TAB PO SCH (08:46)
[2020-11-08] MEDS: DOCUSATE SODIUM 100 MG CAP PO SCH ×2 (08:46→20:26)
[2020-11-08] MEDS: guaiFENesin ER TAB 600 MG TAB PO SCH ×2 (08:46→20:27)
[2020-11-08] MEDS: cefTRIAXone SODIUM 1 GM in SODIUM CHL 0.9% 50ML MIN-BAG+ 50 ML IVPB SCH (09:07)
[2020-11-08] MEDS: VALSARTAN 320 MG PO SCH (09:08)
[2020-11-08] MEDS: MAGNESIUM HYDROXIDE 30 ML UD PO SCH ×2 (10:12→14:22)
[2020-11-08] MEDS: IV SET AND CAP CHANGE INJ INJ SCH (18:09)
[2020-11-08] MEDS: ATORVASTATIN 10 MG TAB PO SCH (20:26)
[2020-11-08] MEDS: METOPROLOL TARTRATE 25 MG TAB PO SCH (20:27)
[2020-11-08] MEDS: NIFEdipine XL 30 MG TAB PO SCH (20:27)
[2020-11-09] MEDS ORDERED: PANTOPRAZOLE SODIUM TAB 40 MG PO ONE (04:40)
[2020-11-09] MEDS: PANTOPRAZOLE SODIUM TAB 40 MG PO SCH (06:19)
--- NOTE | 2020-11-09 07:12 | RAD ---
EXAM: X-RAY ABDOMEN, ONE VIEW HISTORY: constipation. TECHNIQUE: AP supine view of the abdomen. COMPARISON: Abdominal x-ray from 11/05/2020. FINDINGS: Normal bowel gas pattern. Cholecystectomy clips in the right upper quadrant. Small vascular or renal calculi on the left. IMPRESSION: Nonobstructive bowel gas pattern. Electronically signed by: Alec Hahn MD 11/09/2020 7:10 AM RIPPER OPERATOR
[2020-11-09] MEDS: ASPIRIN (CHEWABLE) 81 MG TAB PO SCH (07:55)
[2020-11-09] MEDS: BIFIDOBACTERIUM INFANTIS 4 MG CAP PO SCH (07:55)
[2020-11-09] MEDS: ENOXAPARIN SODIUM 80 MG/0.8 ML SYG SUBCU SCH ×2 (07:55→20:59)
[2020-11-09] MEDS: guaiFENesin ER TAB 600 MG TAB PO SCH ×2 (07:55→21:00)
[2020-11-09] MEDS: METOPROLOL TARTRATE 25 MG TAB PO SCH ×2 (07:55→20:59)
[2020-11-09] MEDS: DOCUSATE SODIUM 100 MG CAP PO SCH ×2 (07:55→20:59)
[2020-11-09] MEDS: AZITHROMYCIN IV 500 MG in SODIUM CHLORIDE 0.9% 250ML 250 ML IVPB SCH (08:00)
--- NOTE | 2020-11-09 08:05 | PN ---
SUPERVISING PHYSICIAN: Ricki Narayan MD DATE: 11/08/20 SUBJECTIVE: The patient is lying in bed sleeping. He awakens easily. He is on BiPAP. He has no complaints of chest pain but does have shortness of breath, although he continues to stress he wants to go home. We discussed his condition and that he would continue to need oxygen and that we would try to wean him when his oxygen is tolerated. OBJECTIVE: VITAL SIGNS: Temperature 97.6, heart rate 79, blood pressure 115/68, respiratory rate 22 oxygen saturation 96% on 50% BiPAP. RESPIRATORY: Diminished throughout. CARDIAC: Regular rate and rhythm. NEUROLOGIC: He is awake and alert and oriented x3. LABORATORY: WBC 11,700, hemoglobin 9.8, hematocrit 29.1. He has a left shift on his differential. Electrolytes are basically within normal limits with the exception of his calcium is 842. BUN 39, creatinine 1.36. Preliminary blood cultures show no growth after 3 days. RADIOLOGY: Chest x-ray shows no significant interval change when compared to prior studies, likely reflecting multifocal pneumonia. ASSESSMENT: 1. Covid-19 pneumonitis with stable pneumonia. 2. Acute renal failure possibly due to some prerenal azotemia. 3. Moderate electrolyte imbalance that has improved. 4. Chronic obstructive pulmonary disease with exacerbation. Patient is 02 dependent at home. 5. History of previous CVAs with no residual deficits. 6. Hypertension. 7. Benign prostatic hypertrophy. 8. Generalized anxiety disorder, on Xanax. PLAN: We will continue present supportive care and continue to titrate his oxygen as tolerated. I have held on lab for tomorrow but have reordered it for the following day. I did speak with the family at length about patient's condition and poor prognosis and answered questions. We will continue to monitor and follow as needed. [facility][id number] [facility]
[2020-11-09] MEDS: IPRATROPIUM/ALBUTEROL 3 ML VIAL NEB SCH ×4 (08:50→19:30)
[2020-11-09] MEDS: BUDESONIDE NEBS 0.5 MG/2 ML INH NEB SCH ×2 (08:50→19:30)
[2020-11-09] MEDS: cefTRIAXone SODIUM 1 GM in SODIUM CHL 0.9% 50ML MIN-BAG+ 50 ML IVPB SCH (10:45)
[2020-11-09] MEDS ORDERED: REMDESIVIR 100 MG in SODIUM CHLORIDE 0.9% 250ML 250 ML IVPB SCH (12:00)
[2020-11-09] MEDS: HYDROcodone 10MG/APAP 325MG 1 EA TAB PO SCH ×2 (12:41→21:00)
[2020-11-09] MEDS: ALPRAZolam 0.25 MG TAB PO SCH ×2 (12:41→21:00)
[2020-11-09] MEDS: DEXAMETHASONE INJ 10 MG/ML VIAL IV SCH (12:49)
[2020-11-09] MEDS: VALSARTAN 80 MG TAB PO SCH (12:52)
--- NOTE | 2020-11-09 15:37 | PN ---
SUPERVISING PHYSICIAN: Ricki Narayan MD DATE: 11/09/20 SUBJECTIVE: The patient has not been resting at night. Review of his medications show that he normally takes [place] and Xanax scheduled. In fact, his family notes that he does take that on a regular basis at home. This may be why he is not sleeping. He was given a dose this morning and actually at the time of my exam, was resting fairly comfortably and seems to be content. He is still requiring a lot of oxygen in the form of nasal cannula at high flow. We will continue to weaning. Otherwise, he does not have any other complaints. He is wanting to go home. OBJECTIVE: VITAL SIGNS: Temperature 97.9, pulse 67, blood pressure 132/68, respirations 20, saturation 94% on high flow nasal cannula via Airvo system which approximates FiO2 of 60%. GENERAL: The patient looks to be resting comfortably. He is alert. CHEST: Breath sounds are diminished throughout. I am not hearing any rales, rhonchi or wheezing. HEART: Regular rate and rhythm. ABDOMEN: Soft, nontender. Positive bowel sounds. EXTREMITIES: No cyanosis, clubbing or edema. NEUROLOGIC: Alert and oriented times three. LABORATORY: White count has normalized at 7,900, hemoglobin 9.9, hematocrit 29.3, platelet count 308,000. Differential does show a left shift. Coagulation studies show D-dimer now is down to 1720. Chemistries show normal electrolytes. Creatinine 1.28. Blood sugars 111, calcium 8.3, magnesium 2.1. Liver functions show a slightly elevated AST at 43, but bilirubin is normal. C- reactive protein is down to 3.9. MICROBIOLOGY: Blood cultures remain negative after 3 days. RADIOLOGY: Abdominal x-ray this morning per radiologic interpretation shows nonobstructive bowel gas pattern. ASSESSMENT: 1. COVID-19 pneumonitis with stable pneumonia. 2. Acute renal failure possibly due to some prerenal azotemia. 3. Moderate electrolyte imbalance that has improved. 4. Chronic obstructive pulmonary disease with exacerbation. Patient is O2 dependent at home. 5. History of previous cerebrovascular accidents with no residual deficits. 6. Hypertension. 7. Benign prostatic hypertrophy. 8. Generalized anxiety disorder, on Xanax. PLAN: We will continue current plan of care. He should be finishing his azithromycin today. He will continue with antibiotic coverage empirically with Rocephin for a total of 10 days of treatment. He has finished his remdesivir. He remains on Lovenox at 1 mg per mg and DVT prophylaxis. I resumed his hydrocodone and Xanax, but decreased the dosing from t.i.d. to b.i.d. He is on Pulmicort and aggressive pulmonary hygiene as well as Decadron. We will continue to titrate his oxygen as he tolerates down to nasal cannula, which he is dependent on at home. Until the patient can transition to outpatient management, we will continue to monitor and treat as needed. #[id number] [facility]
[2020-11-09] MEDS ORDERED: BUDESONIDE NEBS 0.5 MG/2 ML INH NEB ONE (19:37)
[2020-11-09] MEDS: ATORVASTATIN 10 MG TAB PO SCH (20:59)
[2020-11-09] MEDS: NIFEdipine XL 30 MG TAB PO SCH (21:00)
[2020-11-10] MEDS: PANTOPRAZOLE SODIUM TAB 40 MG PO SCH (06:07)
[2020-11-10] MEDS: IPRATROPIUM/ALBUTEROL 3 ML VIAL NEB SCH ×4 (09:00→20:00)
[2020-11-10] MEDS: BUDESONIDE NEBS 0.5 MG/2 ML INH NEB SCH ×2 (09:00→20:00)
[2020-11-10] MEDS: cefTRIAXone SODIUM 1 GM in SODIUM CHL 0.9% 50ML MIN-BAG+ 50 ML IVPB SCH (09:01)
[2020-11-10] MEDS: DOCUSATE SODIUM 100 MG CAP PO SCH ×2 (09:02→20:38)
[2020-11-10] MEDS: guaiFENesin ER TAB 600 MG TAB PO SCH ×2 (09:02→20:38)
[2020-11-10] MEDS: VALSARTAN 80 MG TAB PO SCH (09:02)
[2020-11-10] MEDS: ALPRAZolam 0.25 MG TAB PO SCH ×2 (09:02→20:38)
[2020-11-10] MEDS: BIFIDOBACTERIUM INFANTIS 4 MG CAP PO SCH (09:02)
[2020-11-10] MEDS: DEXAMETHASONE INJ 10 MG/ML VIAL IV SCH (09:02)
[2020-11-10] MEDS: ASPIRIN (CHEWABLE) 81 MG TAB PO SCH (09:02)
[2020-11-10] MEDS: HYDROcodone 10MG/APAP 325MG 1 EA TAB PO SCH ×2 (09:03→20:38)
[2020-11-10] MEDS: ENOXAPARIN SODIUM 80 MG/0.8 ML SYG SUBCU SCH ×2 (09:03→20:39)
[2020-11-10] MEDS: METOPROLOL TARTRATE 25 MG TAB PO SCH ×2 (09:03→20:38)
--- NOTE | 2020-11-10 13:14 | PN ---
SUPERVISING PHYSICIAN: Ricki Narayan MD DATE: 11/10/20 SUBJECTIVE: The patient has been resting fairly comfortably since he has been started on his Xanax and [place]. He is still requiring fairly high flow oxygen which is remaining fairly stable. He at 94 on high flow at 45% FiO2 on Airvo system. No other complaints. OBJECTIVE: VITAL SIGNS: Temperature 99.0, pulse 76, blood pressure 160/70, respirations 20, saturation 94% on high flow nasal cannula via Airvo system with FiO2 of 45%. GENERAL: The patient looks to be resting comfortably. He is alert. CHEST: Breath sounds are diminished throughout. I am not hearing any rales, rhonchi or wheezing. HEART: Regular rate and rhythm. ABDOMEN: Soft, nontender. Positive bowel sounds. EXTREMITIES: No cyanosis, clubbing or edema. NEUROLOGIC: Alert and oriented times three. LABORATORY: No additional laboratory studies today. RADIOLOGY: No additional radiographic studies today. ASSESSMENT: 1. COVID-19 pneumonitis with stable pneumonia. 2. Acute renal failure possibly due to some prerenal azotemia. 3. Moderate electrolyte imbalance that has improved. 4. Chronic obstructive pulmonary disease with exacerbation. Patient is O2 dependent at home. 5. History of previous cerebrovascular accidents with no residual deficits. 6. Hypertension. 7. Benign prostatic hypertrophy. 8. Generalized anxiety disorder, on Xanax. PLAN: We will continue current plan of care. He has finished his azithromycin and will be on empiric coverage in the form of Rocephin. He has finished remdesivir. He continues on Lovenox 1 mg per kg as well as DVT prophylaxis. He is doing well with hydrocodone and Xanax scheduled b.i.d. I have also started him on Pulmicort 1 mg b.i.d. Again, we will continue to titrate his oxygen down as he tolerated to nasal cannula which he is dependent upon at home. Until that point, we will continue to monitor and treat as needed. #[id number] [facility]TDD
[2020-11-10] MEDS: ATORVASTATIN 10 MG TAB PO SCH (20:38)
[2020-11-10] MEDS: NIFEdipine XL 30 MG TAB PO SCH (20:38)
[2020-11-11] MEDS: PANTOPRAZOLE SODIUM TAB 40 MG PO SCH (05:52)
--- NOTE | 2020-11-11 07:15 | RAD ---
EXAM: XR Chest, 1 View CLINICAL HISTORY: covid TECHNIQUE: Frontal view of the chest. COMPARISON: 11/08/2020 FINDINGS: Lungs: Bilateral interstitial and airspace consolidation unchanged. Pleural space: No pneumothorax. No pleural effusion. Heart: Stable cardiac shadow. Mediastinum: No abnormality noted. Bones/joints: No osseous destruction or sclerosis noted. IMPRESSION: Stable abnormalities as above. Electronically signed by: Rosa Maria Pimentel MD 11/11/2020 7:14 AM RAIL MANAGER
[2020-11-11] MEDS: BUDESONIDE NEBS 0.5 MG/2 ML INH NEB SCH ×2 (08:14→21:03)
[2020-11-11] MEDS: IPRATROPIUM/ALBUTEROL 3 ML VIAL NEB SCH ×4 (08:14→21:03)
[2020-11-11] MEDS: ENOXAPARIN SODIUM 80 MG/0.8 ML SYG SUBCU SCH ×2 (09:04→20:12)
[2020-11-11] MEDS: cefTRIAXone SODIUM 1 GM in SODIUM CHL 0.9% 50ML MIN-BAG+ 50 ML IVPB SCH (09:04)
[2020-11-11] MEDS: VALSARTAN 80 MG TAB PO SCH (09:05)
[2020-11-11] MEDS: ALPRAZolam 0.25 MG TAB PO SCH ×2 (09:05→20:12)
[2020-11-11] MEDS: guaiFENesin ER TAB 600 MG TAB PO SCH ×2 (09:05→20:12)
[2020-11-11] MEDS: DEXAMETHASONE INJ 10 MG/ML VIAL IV SCH (09:05)
[2020-11-11] MEDS: METOPROLOL TARTRATE 25 MG TAB PO SCH ×2 (09:05→20:12)
[2020-11-11] MEDS: DOCUSATE SODIUM 100 MG CAP PO SCH ×2 (09:05→20:12)
[2020-11-11] MEDS: BIFIDOBACTERIUM INFANTIS 4 MG CAP PO SCH (09:05)
[2020-11-11] MEDS: HYDROcodone 10MG/APAP 325MG 1 EA TAB PO SCH ×2 (09:06→20:12)
[2020-11-11] MEDS: ASPIRIN (CHEWABLE) 81 MG TAB PO SCH (09:06)
--- NOTE | 2020-11-11 13:08 | PN ---
SUPERVISING PHYSICIAN: Ricki Narayan MD DATE: 11/11/20 SUBJECTIVE: The patient seems to be doing much better today. His oxygen demands are significantly down, but he is still at 8 liter on high flow nasal cannula. He is still anxious to go home. He has no further complaints. He has actually been able to work with physical therapy. OBJECTIVE: VITAL SIGNS: Temperature 98.8, pulse 81, blood pressure 151/72, respirations 22 to 23, saturation 92% on 9 liters nasal cannula, high flow, at rest. GENERAL: The patient looks to be resting comfortably. He is alert. CHEST: Breath sounds are diminished throughout. I am not hearing any rales, rhonchi or wheezing. HEART: Regular rate and rhythm. ABDOMEN: Soft, nontender. Positive bowel sounds. EXTREMITIES: No cyanosis, clubbing or edema. NEUROLOGIC: Alert and oriented times three. LABORATORY: White count stable at 5,300 as well as hemoglobin stable at 9.9 and hematocrit 29.5. Platelet count 289,000. Differential is without a left shift. D-dimer is down to 1710. Chemistries show normal electrolytes. Creatinine 1.13. Calcium 8.0. RADIOLOGY: Single view chest x-ray this morning per radiologic interpretation shows stable chest with bilateral interstitial and airspace consolidations, unchanged. No pneumothorax, no pleural effusions. ASSESSMENT: 1. COVID-19 pneumonitis with stable pneumonia. 2. Acute renal failure possibly due to some prerenal azotemia. 3. Moderate electrolyte imbalance that has improved. 4. Chronic obstructive pulmonary disease with exacerbation. Patient is O2 dependent at home. 5. History of previous cerebrovascular accidents with no residual deficits. 6. Hypertension. 7. Benign prostatic hypertrophy. 8. Generalized anxiety disorder, on Xanax. PLAN: We will continue to work with him on titrating his oxygen down to below 5. He is still on Rocephin, Decadron and Lovenox at 1 mg per kg q.12h. He seems improved in regards to his spirits and anxiety after starting his [place] and Xanax back. He continues to work with physical therapy. We will continue to do aggressive pulmonary hygiene and to titrate his oxygen as his O2 demands allow. Hopefully, we will be able to discharge within the next 24 to 48 hours. Until then, we will continue to monitor and treat as needed. #[id number] [facility]
[2020-11-11] MEDS: IV SET AND CAP CHANGE INJ INJ SCH (18:06)
[2020-11-11] MEDS: ATORVASTATIN 10 MG TAB PO SCH (20:12)
[2020-11-11] MEDS: NIFEdipine XL 30 MG TAB PO SCH (20:12)
[2020-11-12] MEDS: PANTOPRAZOLE SODIUM TAB 40 MG PO SCH (06:38)
[2020-11-12] MEDS: IPRATROPIUM/ALBUTEROL 3 ML VIAL NEB SCH ×4 (08:50→20:42)
[2020-11-12] MEDS: BUDESONIDE NEBS 0.5 MG/2 ML INH NEB SCH ×2 (08:50→20:42)
[2020-11-12] MEDS: DEXAMETHASONE INJ 10 MG/ML VIAL IV SCH (09:39)
[2020-11-12] MEDS: ENOXAPARIN SODIUM 80 MG/0.8 ML SYG SUBCU SCH ×2 (09:39→20:46)
[2020-11-12] MEDS: METOPROLOL TARTRATE 25 MG TAB PO SCH ×2 (09:40→20:46)
[2020-11-12] MEDS: guaiFENesin ER TAB 600 MG TAB PO SCH ×2 (09:40→20:45)
[2020-11-12] MEDS: ASPIRIN (CHEWABLE) 81 MG TAB PO SCH (09:40)
[2020-11-12] MEDS: DOCUSATE SODIUM 100 MG CAP PO SCH ×2 (09:40→20:45)
[2020-11-12] MEDS: cefTRIAXone SODIUM 1 GM in SODIUM CHL 0.9% 50ML MIN-BAG+ 50 ML IVPB SCH (09:40)
[2020-11-12] MEDS: ALPRAZolam 0.25 MG TAB PO SCH ×2 (09:40→20:46)
[2020-11-12] MEDS: BIFIDOBACTERIUM INFANTIS 4 MG CAP PO SCH (09:41)
[2020-11-12] MEDS: HYDROcodone 10MG/APAP 325MG 1 EA TAB PO SCH ×2 (09:41→20:45)
[2020-11-12] MEDS: VALSARTAN 80 MG TAB PO SCH (09:41)
--- NOTE | 2020-11-12 11:59 | PN ---
SUPERVISING PHYSICIAN: Ricki Narayan MD DATE: 11/12/20 SUBJECTIVE: The patient is lying in bed. He is asleep. He awakens easily. We discussed his plan of care and that he would most likely be discharged once his oxygen is down to 4 liters or less. He no complaints of chest pain, nausea or vomiting. He has actually been walking in the hallways. OBJECTIVE: VITAL SIGNS: Temperature 99, heart rate 73, blood pressure 123/53, respiratory rate 23, O2 saturation on 8 liters high flow. RESPIRATORY: Diminished at the bases, otherwise clear to auscultation. CARDIAC: Regular rate and rhythm. NEUROLOGIC: Awake, alert and oriented times three. LABORATORY: There are no labs or films to report at this time. ASSESSMENT: 1. COVID-19 pneumonitis with stable pneumonia. 2. Acute renal failure possibly due to some prerenal azotemia. 3. Moderate electrolyte imbalance that has improved. 4. Chronic obstructive pulmonary disease with exacerbation. Patient is O2 dependent at home. 5. History of previous cerebrovascular accidents with no residual deficits. 6. Hypertension. 7. Benign prostatic hypertrophy. 8. Generalized anxiety disorder, on Xanax. PLAN: We will continue present supportive care. I have ordered routine lab for in the morning. We will continue to aggressively titrate his oxygen down as tolerated. We will continue to have him walk in the hallways. Hopefully, we can discharge in the next 2 to 3 days. #[id number] MTDD
[2020-11-12] MEDS: NIFEdipine XL 30 MG TAB PO SCH (20:45)
[2020-11-12] MEDS: ATORVASTATIN 10 MG TAB PO SCH (20:46)
[2020-11-13] MEDS: PANTOPRAZOLE SODIUM TAB 40 MG PO SCH (05:55)
[2020-11-13] MEDS: BUDESONIDE NEBS 0.5 MG/2 ML INH NEB SCH ×2 (08:35→20:50)
[2020-11-13] MEDS: IPRATROPIUM/ALBUTEROL 3 ML VIAL NEB SCH ×4 (08:35→20:50)
[2020-11-13] MEDS ORDERED: POTASSIUM CHLORIDE 20 MEQ TAB PO ONE (08:45)
[2020-11-13] MEDS ORDERED: POTASSIUM CHLORIDE 20 MEQ TAB ONE (09:43)
[2020-11-13] MEDS: cefTRIAXone SODIUM 1 GM in SODIUM CHL 0.9% 50ML MIN-BAG+ 50 ML IVPB SCH (09:51)
[2020-11-13] MEDS: guaiFENesin ER TAB 600 MG TAB PO SCH ×2 (09:52→20:15)
[2020-11-13] MEDS: ASPIRIN (CHEWABLE) 81 MG TAB PO SCH (09:52)
[2020-11-13] MEDS: BIFIDOBACTERIUM INFANTIS 4 MG CAP PO SCH (09:52)
[2020-11-13] MEDS: METOPROLOL TARTRATE 25 MG TAB PO SCH ×2 (09:52→20:15)
[2020-11-13] MEDS: VALSARTAN 80 MG TAB PO SCH (09:52)
[2020-11-13] MEDS: DEXAMETHASONE INJ 10 MG/ML VIAL IV SCH (09:52)
[2020-11-13] MEDS: ENOXAPARIN SODIUM 80 MG/0.8 ML SYG SUBCU SCH ×2 (09:52→20:15)
[2020-11-13] MEDS: ALPRAZolam 0.25 MG TAB PO SCH ×2 (09:53→20:15)
[2020-11-13] MEDS: HYDROcodone 10MG/APAP 325MG 1 EA TAB PO SCH ×2 (09:53→20:15)
[2020-11-13] MEDS: DOCUSATE SODIUM 100 MG CAP PO SCH ×2 (09:53→20:15)
--- NOTE | 2020-11-13 16:03 | PN ---
SUPERVISING PHYSICIAN: Ricki Narayan MD DATE: 11/13/20 SUBJECTIVE: The patient is sitting up in bed. He is very concerned about when he is going home. He has just been titrated to 4 liters and I explained that this is the lowest oxygen he has been on in over 10 days and that we would need to keep him on that weight overnight. We would walk him in the morning if he tolerates his ambulation study in the morning, he can be discharged home to be on oxygen. I did caution him that there were no guarantees that he would be discharged tomorrow but if he tolerates his oxygen staying under 4 liters nasal cannula, he would be able to go home. OBJECTIVE: VITAL SIGNS: Temperature 99, heart rate 81, blood pressure 131/67, respiratory rate 20, O2 saturation 92% on 3.5 liters nasal cannula. RESPIRATORY: Diminished at the bases. CARDIAC: Regular rate and rhythm. NEUROLOGIC: Awake, alert and oriented times three. LABORATORY: There are no labs or films to report at this time. ASSESSMENT: 1. COVID-19 pneumonitis with stable pneumonia. 2. Acute renal failure possibly due to some prerenal azotemia. 3. Moderate electrolyte imbalance that has improved. 4. Chronic obstructive pulmonary disease with exacerbation. Patient is O2 dependent at home. 5. History of previous cerebrovascular accidents with no residual deficits. 6. Hypertension. 7. Benign prostatic hypertrophy. 8. Generalized anxiety disorder, on Xanax. PLAN: We will continue present supportive care. Will try to keep him on less than 4 liters nasal cannula overnight. In the morning, I plan to ambulate patient and if he tolerates his oxygen on less than 4 liters, we will discharge him home. He does have oxygen at home and I have also given him some potassium supplementation and will monitor and treat if needed. . [facility][id number] [facility]
[2020-11-13] MEDS: ATORVASTATIN 10 MG TAB PO SCH (20:15)
[2020-11-13] MEDS: NIFEdipine XL 30 MG TAB PO SCH (20:15)
[2020-11-14 03:30] VITALS: O2SAT 92
[2020-11-14] MEDS: PANTOPRAZOLE SODIUM TAB 40 MG PO SCH (05:51)
[2020-11-14] MEDS: ASPIRIN (CHEWABLE) 81 MG TAB PO SCH (08:49)
[2020-11-14] MEDS: DOCUSATE SODIUM 100 MG CAP PO SCH (08:49)
[2020-11-14] MEDS: VALSARTAN 80 MG TAB PO SCH (08:49)
[2020-11-14] MEDS: guaiFENesin ER TAB 600 MG TAB PO SCH (08:49)
[2020-11-14] MEDS: DEXAMETHASONE INJ 10 MG/ML VIAL IV SCH (08:49)
[2020-11-14] MEDS: ALPRAZolam 0.25 MG TAB PO SCH (08:49)
[2020-11-14] MEDS: METOPROLOL TARTRATE 25 MG TAB PO SCH (08:49)
[2020-11-14] MEDS: BIFIDOBACTERIUM INFANTIS 4 MG CAP PO SCH (08:49)
[2020-11-14] MEDS: cefTRIAXone SODIUM 1 GM in SODIUM CHL 0.9% 50ML MIN-BAG+ 50 ML IVPB SCH (08:50)
[2020-11-14] MEDS: HYDROcodone 10MG/APAP 325MG 1 EA TAB PO SCH (08:50)
[2020-11-14] MEDS: ENOXAPARIN SODIUM 80 MG/0.8 ML SYG SUBCU SCH (08:50)
[2020-11-14 09:08] VITALS: BP 133/70; TEMP 99.2
[2020-11-14] MEDS: IPRATROPIUM/ALBUTEROL 3 ML VIAL NEB SCH (09:40)
[2020-11-14] MEDS: BUDESONIDE NEBS 0.5 MG/2 ML INH NEB SCH (09:40)
[2020-11-14] MEDS ORDERED: ALBUTEROL INHALER 64 PUFF/8GM INH ONE (14:08)
[2020-11-14] MEDS ORDERED: ALBUTEROL INH (ER DISPENSE) 1 EA INH INH SCH (14:30)
--- NOTE | 2020-11-15 10:10 | DS ---
SUPERVISING PHYSICIAN: Ricki Narayan MD DISCHARGE DIAGNOSIS: 1. COVID-19 pneumonitis with stable pneumonia. 2. Acute renal failure possibly due to some prerenal azotemia. 3. Moderate electrolyte imbalance that has improved. 4. Chronic obstructive pulmonary disease with exacerbation. Patient is O2 dependent at home. 5. History of previous cerebrovascular accidents with no residual deficits. 6. Hypertension. 7. Benign prostatic hypertrophy. 8. Generalized anxiety disorder, on Xanax. HISTORY OF PRESENT ILLNESS: This is an 85-year-old male patient who presented to the Emergency Room today due to increasing shortness of breath that had been going on for about 3 days. He had been diagnosed 12 days previously with COVID- 19. He did receive a monoclonal antibody infusion and apparently had some reaction to the infusion itself. He does have a history of chronic obstructive pulmonary disease and is on oxygen at home. His son reports that his oxygen saturations were down in the 80s even with oxygen in place. The patient was somewhat drowsy although he had been taking his hydrocodone and Ativan which he has p.r.n. He actually took both before he came to the Emergency Room and was found to be fairly drowsy. His initial oxygen saturations in the Emergency Room were 64% but he was noted that his hands were cold and once they were warmed, oxygen saturations were reading 80% on room air. The patient was placed on high flow nasal cannula which did improve to around 96%, but desaturated very quickly when he fell asleep and required a nonrebreather. His chest x-ray showed peripheral interstitial lung disease consistent with COVID pneumonia. It was slightly worsened since previous exam on November 03. His D-dimer was elevated at 3440 as well as his creatinine was up to 2.19 and lactic acid was elevated at 2.6. C-reactive protein was 18.2 and white count with a left shift. Due to his recent diagnosis of COVID-19 with shortness of breath and a history of chronic obstructive pulmonary disease history with oxygen dependence and desaturation, he was admitted to the hospital for treatment of COVID-19 pneumonitis and exacerbation of chronic obstructive pulmonary disease. HOSPITAL COURSE: He was started on the routine COVID medications including remdesivir, Rocephin and azithromycin. He was also given Decadron as well as aggressive pulmonary hygiene. He did start with regular albuterol and DuoNeb treatments. A CTA was unable to be performed due to his elevated creatinine. He was placed on Lovenox 1 mg per kg twice daily. He was also on Align, Protonix and Mucinex. Over the next several days, he had aggressive pulmonary hygiene and continue on the COVID-19 medications. His lab was followed closely as well as his chest x-rays. He was very slow to wean off of his medications and several times, the family was quite impatient with his progress and had to be explained to multiple family members as well as the patient himself why his progression was slow and that he was unable to go home due to the need for high flow oxygen. The family actually threatened to take the patient out AMA several times in spite of extensive education by both the nursing staff and the hospitalist. It was explained that once he got onto less than 4 liters nasal cannula and tolerated that for 24 hours with exertion, he would be able to be discharged with home oxygen. It is also to be noted that he does exhibit desaturations that are consistent with sleep apnea and he would benefit from sleep test at discharge. Today, the patient has been on 3.5 liters for over 24 hours. He has actually walked in the hallway and will desaturation to 88% with exertion, but he does not exhibit any shortness of breath or fatigue. He recovers at rest up to the mid 90s. The oxygen was ordered for him at high flow that goes up to 10 liters per minute. The oxygen company brought a regular flow oxygen today and was being set up at home, but [facility] requested another order and they will change out the regular O2 set up with a high flow O2 set up by tomorrow. The family was informed of this and they voiced understanding. LABORATORY: WBCs were as high as 14,400 and are now 5,400. Hemoglobin is stable at 9.9 and hematocrit 29.5. D-dimer started at 3440 and is down to 1220. Electrolytes have been within normal limits. He did have to have some potassium supplementation one time. It is stable at 3.9. His AST was as high as 43 and is now 20. Troponin was less than 0.02. MICROBIOLOGY: Blood cultures showed no growth after 5 days. RADIOLOGY: His final chest x-ray showed stable chest x-ray. DISCHARGE PLAN: The patient was discharged home in stable condition. He is to resume his previous diet and increase his activity as tolerated. In addition to his routine medications, he will have cefdinir, dexamethasone, guaifenesin, budesonide, albuterol and azithromycin as well as 2 weeks of Eliquis. I have given him Eliquis samples. He is to followup with Dr. Penaloza in the next 1 to 2 weeks. I have also recommended that he have physical therapy that can be ordered by his primary care physician. He is to return to the hospital or followup with his primary care physician for any problems or complications. DISCHARGE MEDICATIONS: 1. Metoprolol. 2. Xanax. 3. Hydrocodone. 4. Valsartan. 5. Aspirin. 6. Atorvastatin. 7. Nifedipine. 8. Align. 9. Cefdinir. 10. Dexamethasone. 11. Guaifenesin. 12. Budesonide. 13. Albuterol. 14. Azithromycin. #[id number] [facility]
== END 2020-11-14 14:15 | disposition home or self-care (01) | DRG 177 ==
LOC: ER 14:51 → MS 18:08 → OBSVTOIN 18:08
PROVIDERS: ADMIT Nurse Practitioner Family; ATTEND Nurse Practitioner Acute Care
PROC: XW033E5 Introduction of Remdesivir Anti-infective into Peripheral Vein, Percutaneous Approach, New Technology Group 5 (ICD-10-PCS; principal; 2020-11-05)
DX: U07.1 COVID-19 (principal); J12.82 Pneumonia due to coronavirus disease 2019; N17.9 Acute kidney failure, unspecified; J44.0 Chronic obstructive pulmonary disease with (acute) lower respiratory infection; J44.1 Chronic obstructive pulmonary disease with (acute) exacerbation; N40.0 Benign prostatic hyperplasia without lower urinary tract symptoms; G47.30 Sleep apnea, unspecified; F41.1 Generalized anxiety disorder; Z86.73 Personal history of transient ischemic attack (TIA), and cerebral infarction without residual deficits; Z79.82 Long term (current) use of aspirin